=== PATIENT | male | born 1960 | race Caucasian/White ===

== ENCOUNTER 2024-01-27 09:18 | Inpatient (IN) ==
--- NOTE | 2024-01-27 10:31 | Emergency Department Note ---
ED Provider Note History of Present Illness Chief Complaint: Flu Like Symptoms Stated Complaint: HEADACHES/DIZZY/UPPER L TOOTH PAIN Time Seen by Provider: 01/27/24 10:06 This is a 63-year-old male accompanied by his who presents to the emergency department with a frontal headache, fevers of 101, dizziness, lightheadedness, body aches, and generally not feeling well. He states that he initially started with symptoms about a month ago, had a bit of a cough and was seen in this emergency department 2 weeks ago. He was diagnosed with a viral upper respiratory infection and given an albuterol inhaler. He states that he feels worse now, not better, however he states that his cough has improved. He also stopped smoking 1 week ago and thinks this may be helping with his cough. He has been taking Tylenol for his fever but then the temperature returns. Has had worsening body aches and joint pains with the symptoms. Is trying to drink fluids but does not want to eat very much. Has not had any vomiting aside from 3 weeks ago. States that his vision feels slightly blurry and he feels dizzy and lightheaded, like the room is spinning but also like he might pass out. He felt his chest pounding earlier today but otherwise does not have any chest pain and does not have any shortness of breath. No abdominal pain or urinary symptoms. Patient also states that he feels like his left upper tooth is infected. Home Medications Medication Instructions Recorded Confirmed Type Doxycycline Hyclate 100 mg PO BID 7 days #14 caps 07/05/16 Rx Ergocalciferol (Vitamin D) 50,000 interunit PO We@1030 90 07/05/16 Rx days #12 caps Fluconazole 100 mg PO QAM 7 days #7 tabs 07/05/16 Rx Folic Acid 1 mg PO QAM 30 days #30 tabs 07/05/16 Rx Ibuprofen Tab (MOTRIN) 1 tab PO TID PRN Headache or Pain 07/05/16 Rx 10 days #30 tabs NICOTINE POLACRILEX (NICOTINE 4 mg PO Q2H PRN cravings 30 days 07/05/16 Rx POLACRILEX START) #1 box albuterol sulfate 90 mcg/actuation 2 puffs inhalation QID PRN 01/14/24 Rx aerosol inhaler (Ventolin HFA) shortness of breath or wheezing #8.5 grams Allergies Allergy/AdvReac Type Severity Reaction Status Date / Time No Known Allergies Allergy NONE Verified 06/21/16 14:50 Past Med/Surg History Problem List (Updated 01/14/24 @ 11:31 by Chon Solo) Viral upper respiratory tract infection with cough (Acute) Medical History Tobacco abuse Diabetes mellitus, type II Surgical History H/O vasectomy H/O brain surgery Social History (Updated 01/14/24 @ 10:10 by Chon Solo) Smoking Status: Former smoker Tobacco Type: Cigarettes Preferred Language: Serbian marital status: Feels Safe at Home: Yes Physical Exam Vital Signs Vital Signs - 24 hr 01/27/24 09:23 Temperature 98.4 F Temperature Source Oral Pulse Rate 98 H Respiratory Rate 19 Respiratory Effort / Characteristics Non-Labored Spontaneous Respiratory Depth Normal Blood Pressure 115/71 Blood Pressure Mean 85 Blood Pressure Position Sitting Pulse Oximetry 95 Oxygen Delivery Method Room Air Sepsis Recent Fever Within 48 Hours No Sepsis New/Unexplained Change in Mental Status No Sepsis Action Taken by Nursing No Action Required Discharge Plan Visit Data Chief Complaint: Flu Like Symptoms Stated Complaint: HEADACHES/DIZZY/UPPER L TOOTH PAIN ED Provider: Justine Heller ED Midlevel Provider: Rah Orozco Forms Stand Alone Forms: [facility] Prescriptions Prescriptions: No Action Doxycycline Hyclate 100 MG capsule 100 mg PO BID 7 Days Qty: 14 0RF Ergocalciferol (Vitamin D) 50,000 INTERUNIT capsule 50,000 interunit PO We@1030 90 Days Qty: 12 0RF Fluconazole 100 MG tablet 100 mg PO QAM 7 Days Qty: 7 0RF Folic Acid 1 MG tablet 1 mg PO QAM 30 Days Qty: 30 0RF Ibuprofen Tab (MOTRIN) 800 MG tablet 1 tab PO TID PRN (Reason: Headache or Pain) 10 Days Qty: 30 0RF NICOTINE POLACRILEX (NICOTINE POLACRILEX START) 4 MG gum 4 mg PO Q2H PRN (Reason: cravings) 30 Days Qty: 1 0RF albuterol sulfate [Ventolin HFA] 90 mcg/actuation HFA aerosol inhaler 2 puffs INH QID PRN (Reason: shortness of breath or wheezing) Qty: 8.5 0RF Referrals Referrals: PCP,NO [Primary Care Provider] -
--- NOTE | 2024-01-27 10:38 | ED Triage Note ---
Date of Service January 27, 2024 Provider in Triage Author: Rah Orozco. History of Present Illness This patient was briefly evaluated while in triage. An abbreviated physical exam was performed. This patient is a 63-year-old Male who presents to the ED for evaluation of worsening dizziness, fatigue, joint pains, fever 101 for 2 weeks. Was seen in this ER 2 weeks ago, cough better but everything else worse. Physical Exam CONSTITUTIONAL: in no acute pain or distress, uncomfortable/ill appearing SKIN: pale, dry CARDIAC: regular rate and rhythm RESPIRATORY: in no respiratory distress, lungs clear to auscultation Initial orders for labs and / or imaging were placed and patient was placed into a room by myself. Initial orders placed. Please see further documentation for the full ED course.
--- NOTE | 2024-01-27 10:56 | Emergency Department Note ---
Impression & Plan Anemia ADMIT ED Provider Note HPI: History obtained from patient and at the bedside. The patient is a 63-year-old gentleman with history of brain aneurysm status post coiling, presents the emergency department today with multiple issues. Patient states over about the past month he has had increasing weakness and fatigue, he states he has had headaches during this time as well. Patient denies any abdominal pain, denies any nausea or vomiting, denies any chest pain or shortness of breath. Patient denies any dysuria, denies any cough. Patient states in general he is just has not felt well. On arrival here to the ED the patient is hemodynamically stable, he does not have a fever, he otherwise appears to be in no acute distress but he is somewhat listless appearing. Patient's also notes that he has had a jaundice coloration that has just become noticeable over the past several days. ROS: - Per HPI Differential Diagnosis: Intracranial hemorrhage to include subarachnoid hemorrhage, viral upper respiratory infection, symptomatic anemia, cancer, pneumonia, sepsis, urinary tract infection, amongst other potential pathologies. *Outpatient medications and allergy history reviewed. 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 Lab work shows no leukocytosis, hemoglobin returned critically low at 6.1, platelet count is normal. CMP does not show any critical findings, lactic acid is slightly elevated at 2.4, bilirubin is elevated at 2.3 but there is no transaminitis, troponin is negative x 1. Procalcitonin is low at 0.31. Urinalysis does not show any evidence of blood or infection. Viral panel testing is negative. CT imaging of the head was obtained that does not show any evidence of any acute intracranial process. On my reassessment the patient is hemodynamically stable, I explained the above findings to the patient and his and recommended admission for packed red blood cell transfusion and further workup for the source of the patient's anemia. He is in agreement. Patient did sign consent for packed red blood cell transfusion at the bedside. I discussed the patient's presentation with the on- call admitting midlevel provider for [facility], Sarah Moon PA-C, and the patient was placed for admission in stable condition. Consultants/Discussions held with other healthcare providers: -Hospitalist, Dr. Garzon Disposition discussion held by myself with: -Patient and at bedside Diagnosis: 1. Symptomatic anemia, acute, nonspecific 2. Elevated bilirubin, acute, mild 3. Headache, acute, nonspecific Disposition: Admission Dominik Soria DO Emergency Medicine Past Med/Surg History Problem List (Updated 01/27/24 @ 14:50 by Dominik Soria DO) Anemia (Acute) Anemia Night sweats Fatigue Unintentional weight loss Sepsis Medical History (Updated 01/27/24 @ 14:50 by Dominik Soria DO) Tobacco use disorder 30 pack years, quit last week Pneumothorax Brain aneurysm Diabetes mellitus, type II diet controlled Surgical History (Updated 01/27/24 @ 14:36 by Sarah Moon PA-C) H/O vasectomy H/O brain surgery h/o clipping of 2 aneurysms in 2004 at OSH in [place] Social History (Updated 01/14/24 @ 10:10 by Chon Solo) Smoking Status: Former smoker Tobacco Type: Cigarettes Preferred Language: Nigerian marital status: Feels Safe at Home: Yes Allergies Allergies Allergy/AdvReac Type Severity Reaction Status Date / Time No Known Allergies Allergy NONE Verified 06/21/16 14:50 Home Meds Home Medications Medication Instructions Recorded Confirmed Advil 1 tab PO UD PRN Pain 01/27/24 01/27/24 Tylenol 1 tab PO UD PRN Pain 01/27/24 01/27/24 Previous Rx's Medication Instructions Recorded albuterol sulfate 90 mcg/actuation 2 puffs inhalation QID PRN 01/14/24 aerosol inhaler (Ventolin HFA) shortness of breath or wheezing #8.5 grams Results & Data (ED) Vital Signs Vital Signs - 24 hr 01/27/24 09:23 01/27/24 11:31 01/27/24 12:00 Temperature 36.9 C Temperature Source Oral Pulse Rate 98 H 82 91 H Respiratory Rate 19 19 Respiratory Effort / Characteristics Non-Labored Spontaneous Respiratory Depth Normal Blood Pressure 115/71 134/70 Blood Pressure Mean 85 91 Blood Pressure Position Sitting Pulse Oximetry 95 92 Oxygen Delivery Method Room Air Sepsis Recent Fever Within 48 Hours No Sepsis New/Unexplained Change in Mental Status No Sepsis Action Taken by Nursing No Action Required 01/27/24 13:59 01/27/24 14:13 01/27/24 14:14 Temperature 38.1 C H 38.6 C H 38.6 C H Temperature Source Oral Oral Oral Pulse Rate 109 H 103 H 101 H Respiratory Rate 14 17 17 Respiratory Effort / Characteristics Respiratory Depth Blood Pressure 134/70 147/75 H 147/75 H Blood Pressure Mean 91 99 99 Blood Pressure Position Pulse Oximetry 94 92 92 Oxygen Delivery Method Sepsis Recent Fever Within 48 Hours Sepsis New/Unexplained Change in Mental Status Sepsis Action Taken by Nursing 01/27/24 14:29 Temperature 38.2 C H Temperature Source Oral Pulse Rate 107 H Respiratory Rate 20 Respiratory Effort / Characteristics Respiratory Depth Blood Pressure 148/72 H Blood Pressure Mean 97 Blood Pressure Position Pulse Oximetry 95 Oxygen Delivery Method Sepsis Recent Fever Within 48 Hours Sepsis New/Unexplained Change in Mental Status Sepsis Action Taken by Nursing Laboratory Data 01/27/24 11:20 01/27/24 11:20 Lab Results 01/27/24 01/27/24 01/27/24 Range/Units 11:20 12:03 12:09 WBC 6.64 (4.8-10.8) K/ul RBC 1.86 L (4.70-6.10) M/uL Hgb 6.1 L* (14.0-18.0) g/dl Hct 18.8 L* (42.0-52.0) % MCV 101.1 H (80.0-100.0) fL MCH 32.8 (25.0-34.0) pg MCHC 32.4 (32.0-36.0) g/dL RDW Std Deviation 58.4 H (36.4-46.3) fL RDW Coeff of Juan 16.5 H (11.5-14.5) % Plt Count 169 (130-400) K/uL MPV 12.0 (9.4-12.4) fL Immature Gran % (Auto) 1.1 % Neut % (Auto) 57.7 % Lymph % (Auto) 23.5 % Sabine % (Auto) 16.7 % Eos % (Auto) 0.8 % Baso % (Auto) 0.2 % Reticulocyte % (Auto) 8.76 H (0.50-2.00) % Neut # (Auto) 3.84 (1.40-6.50) K/uL Lymph # (Auto) 1.56 (1.20-3.40) K/uL Sab[place] # (Auto) 1.11 H (0.11-0.59) K/uL Eos # (Auto) 0.05 (0.00-0.50) K/uL Baso # (Auto) 0.01 (0.00-0.20) K/uL Reticulocyte # 0.160 H (0.020-0.100) 10^6/uL Immature Gran # (Auto) 0.07 (0.01-0.20) K/uL Polychromasia 1+ ESR 34 H (0-20) mm/hr Sodium 137 (136-145) mmol/L Potassium 4.5 (3.5-5.1) mmol/L Chloride 107 (98-107) mmol/L Carbon Dioxide 25 (21-32) mmol/L Anion Gap 5 (3-11) BUN 19 (6-23) mg/dl Creatinine 0.85 (0.6-1.4) mg/dl Est Cr Clr Drug Dosing 84.9 ml/min Est GFR ( Amer) 106.7 ml/min Est GFR (Non-Af Amer) 92.1 ml/min BUN/Creatinine Ratio 22.4 H (10-20) Glucose 122 H (70-99(Fasting)) mg/dl Lactate 2.4 H* (0.4-2.0) mmol/L Calcium 8.3 L (8.6-10.3) mg/dl Magnesium 2.1 (1.7-2.4) mg/dl Total Bilirubin 2.3 H (0.2-1.0) mg/dl AST 33 (13-39) U/L ALT 37 (7-52) U/L Alkaline Phosphatase 71 (34-104) U/L Lactate Dehydrogenase 795 H (86-244) U/L Troponin I High Sens 3.6 (0-20) pg/ml Total Protein 6.5 (6.0-8.3) gm/dl Albumin 3.3 L (3.4-5.0) gm/dl Globulin 3.2 (2.5-4.0) gm/dl Albumin/Globulin Ratio 1.0 (0.9-2) Vitamin B12 596 (180-914) pg/ml Folate 10.01 (>5.38) ng/ml Procalcitonin 0.31 (0-0.5) ng/ml TSH 1.962 (0.300-4.500) uIu/ml Urine Color Urine Appearance (Clear) Urine pH (4.5-7.5) Ur Specific [place] (1.000-1.030) Urine Protein (Negative) Urine Glucose (UA) (Negative) Urine Ketones (Negative) Urine Blood (Negative) Urine Nitrite (Negative) Urine Bilirubin (Negative) Urine Urobilinogen (Negative) Ur Leukocyte Esterase (Negative) Adenovirus (PCR) Not Detected (NotDetected) Anaplasma Smear See Comment Babesia Smear See Comment B. pertussis DNA (PCR) Not Detected (NotDetected) B.parapertussis DNA PCR Not Detected (NotDetected) Lyme Disease Screen Negative (Negative) C. pneumoniae DNA (PCR) Not Detected (NotDetected) Coronavirus OC43 (PCR) Not Detected (NotDetected) Coronavirus HKU1 (PCR) Not Detected (NotDetected) Coronavirus 229E (PCR) Not Detected (NotDetected) SARS-CoV-2 (PCR) Not Detected (NotDetected) Coronavirus NL63 (PCR) Not Detected (NotDetected) Human Metapneumovir PCR Not Detected (NotDetected) Influenza Type A (PCR) Not Detected (NotDetected) Influenza Type B (PCR) Not Detected (NotDetected) M. pneumoniae (PCR) Not Detected (NotDetected) Parainfluenza 1 (PCR) Not Detected (NotDetected) Parainfluenza 2 (PCR) Not Detected (NotDetected) Parainfluenza 3 (PCR) Not Detected (NotDetected) Parainfluenza 4 (PCR) Not Detected (NotDetected) RSV (PCR) Not Detected (NotDetected) Entero/Rhino (PCR) Not Detected (NotDetected) Blood Type O Positive Blood Type Recheck Antibody Screen NEGATIVE Crossmatch See Detail 01/27/24 01/27/24 01/27/24 Range/Units 12:43 14:08 14:32 WBC (4.8-10.8) K/ul RBC (4.70-6.10) M/uL Hgb (14.0-18.0) g/dl Hct (42.0-52.0) % MCV (80.0-100.0) fL MCH (25.0-34.0) pg MCHC (32.0-36.0) g/dL RDW Std Deviation (36.4-46.3) fL RDW Coeff of Juan (11.5-14.5) % Plt Count (130-400) K/uL MPV (9.4-12.4) fL Immature Gran % (Auto) % Neut % (Auto) % Lymph % (Auto) % Sabine % (Auto) % Eos % (Auto) % Baso % (Auto) % Reticulocyte % (Auto) (0.50-2.00) % Neut # (Auto) (1.40-6.50) K/uL Lymph # (Auto) (1.20-3.40) K/uL Sab[place] # (Auto) (0.11-0.59) K/uL Eos # (Auto) (0.00-0.50) K/uL Baso # (Auto) (0.00-0.20) K/uL Reticulocyte # (0.020-0.100) 10^6/uL Immature Gran # (Auto) (0.01-0.20) K/uL Polychromasia ESR (0-20) mm/hr Sodium (136-145) mmol/L Potassium (3.5-5.1) mmol/L Chloride (98-107) mmol/L Carbon Dioxide (21-32) mmol/L Anion Gap (3-11) BUN (6-23) mg/dl Creatinine (0.6-1.4) mg/dl Est Cr Clr Drug Dosing ml/min Est GFR ( Amer) ml/min Est GFR (Non-Af Amer) ml/min BUN/Creatinine Ratio (10-20) Glucose (70-99(Fasting)) mg/dl Lactate 1.0 (0.4-2.0) mmol/L Calcium (8.6-10.3) mg/dl Magnesium (1.7-2.4) mg/dl Total Bilirubin (0.2-1.0) mg/dl AST (13-39) U/L ALT (7-52) U/L Alkaline Phosphatase (34-104) U/L Lactate Dehydrogenase (86-244) U/L Troponin I High Sens (0-20) pg/ml Total Protein (6.0-8.3) gm/dl Albumin (3.4-5.0) gm/dl Globulin (2.5-4.0) gm/dl Albumin/Globulin Ratio (0.9-2) Vitamin B12 (180-914) pg/ml Folate (>5.38) ng/ml Procalcitonin (0-0.5) ng/ml TSH (0.300-4.500) uIu/ml Urine Color Dark Yellow Urine Appearance Clear (Clear) Urine pH 6.0 (4.5-7.5) Ur Specific [place] 1.018 (1.000-1.030) Urine Protein Negative (Negative) Urine Glucose (UA) Negative (Negative) Urine Ketones Negative (Negative) Urine Blood Negative (Negative) Urine Nitrite Negative (Negative) Urine Bilirubin Negative (Negative) Urine Urobilinogen Negative (Negative) Ur Leukocyte Esterase Negative (Negative) Adenovirus (PCR) (NotDetected) Anaplasma Smear Babesia Smear B. pertussis DNA (PCR) (NotDetected) B.parapertussis DNA PCR (NotDetected) Lyme Disease Screen (Negative) C. pneumoniae DNA (PCR) (NotDetected) Coronavirus OC43 (PCR) (NotDetected) Coronavirus HKU1 (PCR) (NotDetected) Coronavirus 229E (PCR) (NotDetected) SARS-CoV-2 (PCR) (NotDetected) Coronavirus NL63 (PCR) (NotDetected) Human Metapneumovir PCR (NotDetected) Influenza Type A (PCR) (NotDetected) Influenza Type B (PCR) (NotDetected) M. pneumoniae (PCR) (NotDetected) Parainfluenza 1 (PCR) (NotDetected) Parainfluenza 2 (PCR) (NotDetected) Parainfluenza 3 (PCR) (NotDetected) Parainfluenza 4 (PCR) (NotDetected) RSV (PCR) (NotDetected) Entero/Rhino (PCR) (NotDetected) Blood Type Blood Type Recheck O Positive Antibody Screen Crossmatch Administered Medications Discontinued Medications Acetaminophen (Acetaminophen 500 Mg Tab) 1,000 mg PO NOW STA Stop: 01/27/24 14:14 Last Admin: 01/27/24 14:19 Dose: 1,000 mg Documented By: CIELO Sodium Chloride (Nss) 1,000 mls @ 999 mls/hr IV .Q1H1M ONE Stop: 01/27/24 11:33 Last Infusion: 01/27/24 13:36 Dose: Infused Documented By: Admin: 01/27/24 11:37 Dose: 999 mls/hr Documented By: CIELO Imaging Data Radiologist's Impression: Chest X-Ray 01/27/24 10:33 XR chest 1V portable HISTORY: weakness COMPARISON: Chest 01/14/2024. FINDINGS: The lungs are clear. Cardiac silhouette is normal in size. No pleural effusions. No pneumothorax. IMPRESSION: No acute process. ACT 112: Negative or not required by law. Electronically signed by: Jose He M.D. 01/27/2024 11:[address] 01/27/24 10:[address] DOSE: 547.75 mGy.cm HISTORY: Headache. Weakness. TECHNIQUE: Multiaxial CT images of the head were performed without the use of intravenous contrast. Automated exposure control was utilized for this study. A dose lowering technique was utilized adhering to the principles of ALARA. Comparison: Head CTA 06/28/2016. Findings: The paranasal sinuses and mastoid air cells are clear. The calvarium and skull base are intact. The ventricles and sulci are within normal limits. There is no mass, hematoma, midline shift, or acute infarct. Prior aneurysm embolizations for coiling again noted at the skull base. Impression: No significant change compared to the prior study. No acute intracranial abnormality. ACT 112: Negative or not required by law. Electronically signed by: Jose He M.D. 01/27/2024 12:14 PM Discharge Plan Visit Data Chief Complaint: Flu Like Symptoms Stated Complaint: HEADACHES/DIZZY/UPPER L TOOTH PAIN ED Provider: Dominik Soria Discharge Problem: Anemia Forms Stand Alone Forms: [facility] Prescriptions Prescriptions: No Action albuterol sulfate [Ventolin HFA] 90 mcg/actuation HFA aerosol inhaler 2 puffs INH QID PRN (Reason: shortness of breath or wheezing) Qty: 8.5 0RF Advil 1 tab PO UD PRN (Reason: Pain) Rx Instructions: otc, as directed. unknown dose Tylenol 1 tab PO UD PRN (Reason: Pain) Rx Instructions: otc, as directed. unknown dose Referrals Referrals: PCP,NO [Primary Care Provider] - Discharge Problem: Anemia Qualifiers: Anemia type: unspecified type Qualified Code(s): D64.9 - Anemia, unspecified
--- NOTE | 2024-01-27 11:08 | XRay Report ---
XR chest 1V portable HISTORY: weakness COMPARISON: Chest 01/14/2024. FINDINGS: The lungs are clear. Cardiac silhouette is normal in size. No pleural effusions. No pneumot horax. IMPRESSION: No acute process. ACT 112: Negative or not required by law. Electronically signed by: Jose He M.D. 01/27/2024 11:07 AM
[2024-01-27] MEDS: SODIUM CHLORIDE 0.9% 1,000 ML IV ONE (11:37)
[2024-01-27 12:05] LABS: Hematocrit (blood only) 18.8 % (42.0-52.0); Hemoglobin 6.1 g/dl (14.0-18.0); Mean Corpuscular Hemoglobin 32.8 pg (25.0-34.0); Mean Corpuscular Hgb Conc 32.4 g/dL (32.0-36.0); Mean Corpuscular Volume 101.1 fL (80.0-100.0); Platelet Count 169 K/uL (130-400); RDW Coefficient of Variation 16.5 % (11.5-14.5); RDW Standard Deviation 58.4 fL (36.4-46.3); Red Blood Count 1.86 M/uL (4.70-6.10); White Blood Count 6.64 K/ul (4.8-10.8)
[2024-01-27] MEDS ORDERED: SODIUM CHLORIDE 0.9% 250 ML IV PRN ×2 (12:06→21:49)
[2024-01-27 12:08] LABS: Albumin Level 3.3 gm/dl (3.4-5.0); Bilirubin,Total 2.3 mg/dl (0.2-1.0); Calcium 8.3 mg/dl (8.6-10.3); Magnesium 2.1 mg/dl (1.7-2.4); Potassium 4.5 mmol/L (3.5-5.1)
[2024-01-27 12:14] LABS: BUN Creatinine Ratio 22.4 (10-20); Creatinine Clr Calc Pharmacy 84.9 ml/min; Est GFR (African American) 106.7 ml/min; Est GFR (Non-African American) 92.1 ml/min; Globulin 3.2 gm/dl (2.5-4.0); Total Protein 6.5 gm/dl (6.0-8.3)
--- NOTE | 2024-01-27 12:16 | CT Scan Report ---
HEAD CT NONCONTRAST CT DOSE: 547.75 mGy.cm HISTORY: Headache. Weakness. TECHNIQUE: Multiaxial CT images of the head were performed without the use of intravenous contrast. A utomated exposure control was utilized for this study. A dose lowering technique was utilized adheri ng to the principles of ALARA. Comparison: Head CTA 06/28/2016. Findings: The paranasal sinuses and mastoid air cells are clear. The calvarium and skull base are int act. The ventricles and sulci are within normal limits. There is no mass, hematoma, midline shift, or acute infarct. Prior aneurysm embolizations for coiling again noted at the skull base. Impression: No significant change compared to the prior study. No acute intracranial abnormality. ACT 112: Negative or not required by law. Electronically signed by: Jose He M.D. 01/27/2024 12:14 PM
[2024-01-27 12:20] LABS: Troponin I High Sensitivity 3.6 pg/ml (0-20)
[2024-01-27 12:21] LABS: Basophils # (auto) 0.01 K/uL (0.00-0.20); Basophils % (auto) 0.2 %; Eosinophils # (auto) 0.05 K/uL (0.00-0.50); Eosinophils % (auto) 0.8 %; Immature Granulocytes # (auto) 0.07 K/uL (0.01-0.20); Immature Granulocytes % (auto) 1.1 %; Lymphocytes # (auto) 1.56 K/uL (1.20-3.40); Lymphocytes % (auto) 23.5 %; Monocytes # (auto) 1.11 K/uL (0.11-0.59); Monocytes % (auto) 16.7 %; Neutrophils # (auto) 3.84 K/uL (1.40-6.50); Neutrophils % (auto) 57.7 %; Polychromasia 1+
[2024-01-27 13:09] LABS: Procalcitonin 0.31 ng/ml (0-0.5)
[2024-01-27 13:28] LABS: Adenovirus PCR Not Detected (NotDetected); Bordetella parapertussis PCR Not Detected (NotDetected); Bordetella pertussis PCR Not Detected (NotDetected); Chlamydia pneumoniae PCR Not Detected (NotDetected); Coronavirus 229E PCR Not Detected (NotDetected); Coronavirus CoV-2 (COVID19)PCR Not Detected (NotDetected); Coronavirus HKU1 PCR Not Detected (NotDetected); Coronavirus NL63 PCR Not Detected (NotDetected); Coronavirus OC43PCR Not Detected (NotDetected); Human Metapneumovirus PCR Not Detected (NotDetected); Influenza A PCR Not Detected (NotDetected); Influenza B PCR Not Detected (NotDetected); Mycoplasma pneumoniae PCR Not Detected (NotDetected); Parainfluenza Virus 1 PCR Not Detected (NotDetected); Parainfluenza Virus 2 PCR Not Detected (NotDetected); Parainfluenza Virus 3 PCR Not Detected (NotDetected); Parainfluenza Virus 4 PCR Not Detected (NotDetected); Respiratory Syncytial VirusPCR Not Detected (NotDetected); Rhinovirus/Enterovirus PCR Not Detected (NotDetected)
[2024-01-27 13:35] LABS: Lyme Screen Rflx Confirmation Negative (Negative)
[2024-01-27 13:37] LABS: Thyroid Stimulating Hormone 1.962 uIu/ml (0.300-4.500)
[2024-01-27 14:00] LABS: Reticulocyte % 8.76 % (0.50-2.00)
[2024-01-27] MEDS ORDERED: VANCOMYCIN CONSULT ACTIVE PRN (14:11)
--- NOTE | 2024-01-27 14:13 | History & Physical Report ---
Date of Service January 27, 2024 Assessment & Plan (1) Anemia: (2) Sepsis: (3) Fatigue: (4) Unintentional weight loss: (5) Night sweats: (6) Tobacco use disorder: Plan This is a 63-year-old male with history of tobacco use, diet-controlled type 2 diabetes history of brain aneurysm s/p clipping in 2004 and other medical problems listed below who presents with night sweats and progressive fatigue over the past 3 weeks and was found to have anemia requiring transfusion. Macrocytic anemia Hgb 6.1, hct 18.8, MCV 101.1, Tbili 2.3 Added folate, B12, TSH, retic count, LDH, haptoglobin, peripheral smear to work up Consented, type and crossed with 2 units prbcs ordered Recheck H&H after transfusion Night sweats Unintentional weight loss Presenting with night sweats over past 3 weeks, 30 # weight loss over last 4 months, 30 pack year smoking hx CXR without acute process Obtaining CT chest and CT abd/pelvis with con for better evaluation, need to r/o malignancy given presentation Continue anemia work up, periph smear as above Sepsis Initially afebrile in ED but repeat vitals showing T 38 C, HR 103, lactate 2.5 meeting sepsis criteria No leukocytosis, procal WNL CT head and CXR without acute process Added blood culture, MRSA swab Started empiric vanc, zosyn with add'l imaging of chest and abdomen, UA pending Received 1L NSS in ED, lactate normalized. Now receiving blood transfusion History of tobacco use 30 pack years, quit 1 week ago. Declines nicotine patch DVT Ppx: SCDs only for now given anemia of unknown source Code status: FULL PCP: No PCP - lives in [place], [place] Dispo: admitted to PCU Patient seen in collaboration with Dr. Garzon. Please see addendum. I spent a total of 75 minutes coordinating, documenting, and providing care for this patient excluding time spent in the performance of separately billed services. History of Present Illness Chief Complaint: Fatigue, unintentional weight loss Primary Care Provider: NO PCP This is a 63-year-old male with history of tobacco use, diet-controlled type 2 diabetes history of brain aneurysm s/p clipping in 2004 and other medical problems listed below who presents with night sweats and progressive fatigue over the past 3 weeks. Patient does not have a PCP or receive routine medical care. Was seen in the ED 2 weeks ago for cough, fever and body aches and was felt to have viral bronchitis. Discharged home with inhaler. Patient admits that over the past 6 months, he has felt progressively weaker, more fatigued and now with body aches as well as an approximate unintentional 30 pound weight loss. Endorses 30 pack years of smoking history but quit 1 week ago. Also endorses night sweats 1-2 times a week for the past 3 weeks. Decreased appetite. Denies fever since seen in the ED at the end of December. Cough has also improved. Still with intermittent chills, body aches. Only medications he is taking at home are Tylenol and Advil, which he has been taking for general body aches as well as frontal headache. Endorsing aching in knees but no swelling or redness to any joint. Denies any alcohol use. Denies any history of known anemia requiring blood transfusion. No personal history of cancer. No lightheadedness, CP, SOB, N/V, abdominal pain, dysuria, diarrhea, constipation, melena or hematochezia. Allergies Allergy/AdvReac Type Severity Reaction Status Date / Time No Known Allergies Allergy NONE Verified 06/21/16 14:50 Home Medications Medication Instructions Recorded Confirmed Type albuterol sulfate 90 mcg/actuation 2 puffs inhalation QID PRN 01/14/24 01/27/24 Rx aerosol inhaler (Ventolin HFA) shortness of breath or wheezing #8.5 grams Advil 1 tab PO UD PRN Pain 01/27/24 01/27/24 History Tylenol 1 tab PO UD PRN Pain 01/27/24 01/27/24 History Past Med/Surg History Problem List (Updated 01/27/24 @ 14:50 by Dominik Soria DO) Anemia (Acute) Anemia Night sweats Fatigue Unintentional weight loss Sepsis Medical History (Updated 01/27/24 @ 14:50 by Dominik Soria DO) Tobacco use disorder 30 pack years, quit last week Pneumothorax Brain aneurysm Diabetes mellitus, type II diet controlled Surgical History (Updated 01/27/24 @ 14:36 by Sarah Moon PA-C) H/O vasectomy H/O brain surgery h/o clipping of 2 aneurysms in 2004 at O[facility] in [place] Social History (Updated 01/14/24 @ 10:10 by Chon Solo) Smoking Status: Former smoker Tobacco Type: Cigarettes Preferred Language: Sami marital status: Feels Safe at Home: Yes Review of Systems Review of Systems: At least ten systems reviewed and negative except as noted in the HPI. Physical Exam Physical Exam: General Appearance: WD/WN, vitals as above, NAD, thin, ill appearing, conversing easily Head: normocephalic, atraumatic Eyes: normal inspection, PERRL, conjunctivae normal, anicteric sclerae ENT: external ear and nose normal, oropharynx normal Neck: normal visual inspection, trachea midline, no thyromegaly Respiratory: normal respiratory effort, diminished lung sounds to auscultation, no wheeze, rales or rhonchi. No accessory muscle use Cardiovascular: tachycardic rate, regular rhythm, normal peripheral pulses, no BLE edema. Vessels: no JVD Chest: normal inspection of chest Abdomen/GI: normal bowel sounds, soft, nontender, no hepatosplenomegaly Extremities/Musculoskeletal: no cyanosis or clubbing, extremities motor strength 5/5 Neurologic: PERRL, EOMI, accommodation nl, no face palsy, no dysarthria, CN's II-XI intact bilaterally and moves all extremities Psychiatric: A+Ox3, euthymic affect Skin: no rashes, normal color, warm/dry Results & Data Results & Data Vital Signs (Past 12 Hours) Vital Signs Temp Pulse Resp BP Pulse Ox O2 Del Method 01/27/24 13:59 38.1 C H 109 H 14 134/70 94 01/27/24 12:00 91 H 19 134/70 92 01/27/24 11:31 82 01/27/24 09:23 36.9 C 98 H 19 115/71 95 Room Air Laboratory Results Short CBC 01/27/24 Range/Units 11:20 WBC 6.64 (4.8-10.8) K/ul Hgb 6.1 L* (14.0-18.0) g/dl Hct 18.8 L* (42.0-52.0) % Plt Count 169 (130-400) K/uL BMP 01/27/24 11:20 Sodium 137 Potassium 4.5 Chloride 107 Carbon Dioxide 25 BUN 19 Creatinine 0.85 Glucose 122 H Calcium 8.3 L Liver Function 01/27/24 Range/Units 11:20 Total Bilirubin 2.3 H (0.2-1.0) mg/dl AST 33 (13-39) U/L ALT 37 (7-52) U/L Alkaline Phosphatase 71 (34-104) U/L Albumin 3.3 L (3.4-5.0) gm/dl Diagnostic Findings Chest X-Ray 01/27/24 10:33 XR chest 1V portable HISTORY: weakness COMPARISON: Chest 01/14/2024. FINDINGS: The lungs are clear. Cardiac silhouette is normal in size. No pleural effusions. No pneumothorax. IMPRESSION: No acute process. ACT 112: Negative or not required by law. Electronically signed by: Jose He M.D. 01/27/2024 11:[address] 01/27/24 10:[address] CT DOSE: 547.75 mGy.cm HISTORY: Headache. Weakness. TECHNIQUE: Multiaxial CT images of the head were performed without the use of intravenous contrast. Automated exposure control was utilized for this study. A dose lowering technique was utilized adhering to the principles of ALARA. Comparison: Head CTA 06/28/2016. Findings: The paranasal sinuses and mastoid air cells are clear. The calvarium and skull base are intact. The ventricles and sulci are within normal limits. There is no mass, hematoma, midline shift, or acute infarct. Prior aneurysm embolizations for coiling again noted at the skull base. Impression: No significant change compared to the prior study. No acute intracranial abnormality. ACT 112: Negative or not required by law. Electronically signed by: Jose He M.D. 01/27/2024 12:14 PM Code Status & VTE Plan VTE Prophylaxis Plan VTE Prophylaxis will be ordered: Yes Supervising Physician Co-Signing Physician Notes Attending addendum; The patient was seen and examined in telemetry unit in presence of the family members He has been complaining of progressive weakness and weight loss for the last 3 to 4 weeks Also complains to have occasional fever and night sweats for almost the same. He was in the ER with URI symptoms and was sent home on oral inhalers-no blood test were done during that examination except BioFire which was negative Denies any chest pain, palpitation, any nausea no vomiting, any problem with urine or bowel habit and no history of hematemesis and/or melena. He has not been to doctors for years On examination He looks pale without any apparent distress lying down Noted to have a temperature of 38 degrees with a pulse of 91 and normal saturation and blood pressure Chest-clear to auscultate bilaterally Heart-S1-S2, regular Abdomen-benign Extremities-negative for any edema [employer]-alert, awake and oriented x 3. No focal sensory or motor deficit appreciated His admission labs, EKG and imaging studies reviewed Notable findings of low hemoglobin of 6.1 with mildly increased MCV and increased reticulocyte count of 8.76 and his LDH was high at 795. Peripheral blood smear and Elis test have been pending. ESR was unremarkable at 30 His initial lactate was 2.4 and that came down with intravenous fluid He was started with blood transfusion but due to high temperature of 39 that was on hold right now The case was discussed with Dr. Leahy and very still waiting for Elis test and haptoglobin CT scan of the chest and CT scan of the abdomen pelvis with contrast did not show any significant abnormality except mildly enlarged spleen He was started with intravenous Zosyn and vancomycin empirically after taking blood cultures His stool is negative for any blood He will have repeat CBC in the evening and will restart blood transfusion when the temperature is down He will have TTE initially until we get the blood culture. The case was discussed with the and the daughter Agree with and take the full responsibility of the assessment plan as outlined above by MAVERICK Noonan Dr
[2024-01-27] MEDS ORDERED: ALBUTEROL HFA 8 GM INHALER INH PRN (14:18)
[2024-01-27] MEDS: ACETAMINOPHEN 500 MG TAB PO STA (14:19)
[2024-01-27 14:21] LABS: Folate (Folic Acid),Ser orPlas 10.01 ng/ml (>5.38)
[2024-01-27 14:43] LABS: Appearance Urine Clear (Clear); Bilirubin Urine Negative (Negative); Blood Urine Negative (Negative); Color Urine Dark Yellow; Glucose Urine UA Negative (Negative); Ketones Urine Negative (Negative); Leukocyte Esterase Urine Negative (Negative); Nitrite Urine Negative (Negative); Protein Urine Negative (Negative); Specific Gravity Urine 1.018 (1.000-1.030); Urobilinogen Urine Negative (Negative)
[2024-01-27] MEDS: PIPERACILLIN/TAZOBACTAM 4.5 GM/100 ML BAG IV ONE (15:02)
[2024-01-27] MEDS: IBUPROFEN 200 MG TAB PO ONE (15:30)
[2024-01-27] MEDS: OPTIRAY 320 100ml IV ONE (15:42)
[2024-01-27] MEDS: IBUPROFEN 200 MG TAB PO STA (16:08)
--- NOTE | 2024-01-27 16:10 | Electrocardiogram Report ---
Test Reason : Blood Pressure : / mmHG Vent. Rate : 055 BPM Atrial Rate : 055 BPM P-R Int : 154 ms QRS Dur : 082 ms QT Int : 396 ms P-R-T Axes : 069 067 076 degrees QTc Int : 378 ms Sinus bradycardia When compared with ECG of 28-JUN-2016 13:30, Vent. rate has decreased BY 39 BPM Nonspecific T wave abnormality no longer evident in Inferior leads T wave inversion less evident in Anterolateral leads Confirmed by Branden Vu ([id number]) on 01/27/2024 4:09:59 PM Referred By: Confirmed By:Oswaldo Vu
--- NOTE | 2024-01-27 16:59 | CT Scan Report ---
CHEST CT WITH CONTRAST; CT ABDOMEN AND PELVIS WITH IV CONTRAST ONLY CT DOSE: 917.74 mGy.cm HISTORY: Acute fever with weight loss. fever, weight loss, fatigue TECHNIQUE: Multiaxial CT images of the chest, abdomen and pelvis were performed following the IV admi nistration of 94 cc of Optiray. A dose lowering technique was utilized adhering to the principles o f ALARA. COMPARISON: CTA chest 06/21/2016. FINDINGS: CT CHEST: Unremarkable thyroid. No pathologically enlarged lymph nodes. Heart is normal in size. No thoracic ao rtic aneurysm. Unremarkable pulmonary artery. Pulmonary emphysema with bronchial wall thickening, sug gestive of bronchitis. Mild subsegmental bibasilar atelectasis versus scarring. No suspicious pulmona ry nodules or masses. Left lower lobe calcified granulomata. Central airways are patent. Unremarkable soft tissues. No acute fracture is identified. CT ABDOMEN/PELVIS: No free air. Study is motion degraded. The spleen is enlarged measuring up to 14.7 cm. Unremarkable p ancreas, gallbladder and adrenal glands. Possible layering gallbladder sludge. Unremarkable liver. Pa tency of the hepatic and portal veins. A 1.5 cm left hepatic lobe cyst. Unremarkable kidneys. No hydr onephrosis. Partial distention of the urinary bladder with wall thickening and perivesicular strandin g. Mild prostatomegaly. Atherosclerosis of the aorta without aneurysm. No lymphadenopathy. No bowel obstruction or bowel wall thickening is identified, however, there is limited evaluation wit hout the use of enteric contrast. Unremarkable soft tissues. No acute fracture. Chronic L5 pars defec ts with grade 1 anterolisthesis and severe L5-S1 intervertebral disc space narrowing. There is at [address] st moderate narrowing of the SI joints. IMPRESSION: 1. No acute intrathoracic, intra-abdominal or intrapelvic abnormality identified. 2. Splenomegaly. 3. No bowel obstruction or bowel wall thickening. 4. Nonspecific urinary bladder wall thickening. Correlate with urinalysis to exclude cystitis. 5. Additional findings as above. ACT 112: Negative or not required by law. Dictated: 01/27/2024 4:13 PM Transcribed: 01/27/2024 4:57 PM Scottie [id number] [email or web address] Electronically signed by: Armando Kelly M.D. 01/27/2024 4:58 PM
[2024-01-27] MEDS ORDERED: ONDANSETRON INJ 2 MG/ML 2 ML VIAL IV PRN (17:43)
[2024-01-27] MEDS ORDERED: ACETAMINOPHEN 325 MG TAB PO PRN (17:43)
[2024-01-27] MEDS ORDERED: POLYETHYLENE (MIRALAX) 17 GM PACK PO PRN (17:43)
[2024-01-27] MEDS: SODIUM CHLORIDE 0.9% 1,000 ML IV SCH (17:46)
[2024-01-27] MEDS: VANCOMYCIN HCL 1,500 MG in SODIUM CHLORIDE 0.9% 500 ML IV STA (18:36)
[2024-01-27] MEDS: ACETAMINOPHEN 500 MG TAB PO SCH (18:43)
[2024-01-27] MEDS: PIPERACILLIN/TAZOBACTAM 4.5 GM in DEXTROSE 5% MINI-B 100 ML IV SCH (20:52)
[2024-01-27 21:13] LABS: Hematocrit (blood only) 16.3 % (42.0-52.0); Hemoglobin 5.2 g/dl (14.0-18.0); Mean Corpuscular Hemoglobin 31.9 pg (25.0-34.0); Mean Corpuscular Hgb Conc 31.9 g/dL (32.0-36.0); Nucleated RBC # (auto) 0.02 K/uL (0.00-0.12); Nucleated RBC % (auto) 0.4 %; Platelet Count 174 K/uL (130-400); RDW Standard Deviation 62.9 fL (36.4-46.3); Red Blood Count 1.63 M/uL (4.70-6.10); White Blood Count 5.21 K/ul (4.8-10.8)
[2024-01-27 21:25] LABS: Blood Urine Negative (Negative)
[2024-01-27] MEDS ORDERED: ACETAMINOPHEN 325 MG TAB PO STA (21:48)
[2024-01-27 21:50] LABS: ALC (manual) 1.35 K/uL (1.2-3.4); ANC (manual) 3.33 K/uL (1.4-6.5); Eosinophils # (manual) 0.16 K/uL (0-0.50); Eosinophils % (manual) 3 %; Lymphocytes # (manual) 1.35 K/uL (1.2-3.4); Lymphocytes % (manual) 26 %; Monocytes # (manual) 0.36 K/uL (0.11-0.59); Monocytes % (manual) 7 %; Neutrophils # (manual) 3.33 K/uL (1.40-6.50); Neutrophils % (manual) 64 %; Polychromasia 1+
[2024-01-27] MEDS: diphenhydrAMINE Capsule 25 MG CAP PO ONE (22:38)
[2024-01-27] MEDS: FOLIC ACID 1 MG in SYRINGE 9.8 ML IV STA (22:58)
[2024-01-27] MEDS: diphenhydrAMINE 50 MG/ML VIAL IV STA (22:58)
[2024-01-28 02:57] LABS: Albumin Globulin Ratio 1.1 (0.9-2); Albumin Level 2.7 gm/dl (3.4-5.0); Bilirubin,Total 2.1 mg/dl (0.2-1.0); Calcium 7.3 mg/dl (8.6-10.3); Creatinine Clr Calc Pharmacy 70.8 ml/min; Est GFR (African American) 97.7 ml/min; Est GFR (Non-African American) 84.3 ml/min; Globulin 2.5 gm/dl (2.5-4.0); Potassium 4.2 mmol/L (3.5-5.1); Total Protein 5.2 gm/dl (6.0-8.3)
[2024-01-28] MEDS: VANCOMYCIN HCL 750 MG in SODIUM CHLORIDE 0.9% 250 ML IV SCH (02:58)
[2024-01-28] MEDS: NICOTINE 14 MG/24 HR PATCH TD SCH (02:58)
[2024-01-28 03:32] LABS: Hematocrit (blood only) 19.5 % (42.0-52.0); Hemoglobin 6.3 g/dl (14.0-18.0); Mean Corpuscular Hemoglobin 31.5 pg (25.0-34.0); Mean Corpuscular Hgb Conc 32.3 g/dL (32.0-36.0); Mean Corpuscular Volume 97.5 fL (80.0-100.0); Mean Platelet Volume 10.6 fL (9.4-12.4); Platelet Count 186 K/uL (130-400); RDW Coefficient of Variation 17.4 % (11.5-14.5); RDW Standard Deviation 56.9 fL (36.4-46.3); White Blood Count 6.13 K/ul (4.8-10.8)
[2024-01-28] MEDS ORDERED: SODIUM CHLORIDE 0.9% 250 ML IV PRN (04:47)
[2024-01-28] MEDS: diphenhydrAMINE 50 MG/ML VIAL IV STA (05:21)
[2024-01-28 06:51] LABS: Estimated Average Glucose 117 mg/dl; Hemoglobin A1C 5.7 % (4.5-5.6)
[2024-01-28] MEDS: FOLIC ACID 1 MG in SYRINGE 9.8 ML IV SCH (09:06)
[2024-01-28 10:35] LABS: Hematocrit (blood only) 23.3 % (42.0-52.0); Hemoglobin 7.7 g/dl (14.0-18.0); Mean Corpuscular Hemoglobin 30.9 pg (25.0-34.0); Mean Corpuscular Volume 93.6 fL (80.0-100.0); Mean Platelet Volume 10.8 fL (9.4-12.4); Platelet Count 181 K/uL (130-400); RDW Coefficient of Variation 19.9 % (11.5-14.5); RDW Standard Deviation 63.4 fL (36.4-46.3); Red Blood Count 2.49 M/uL (4.70-6.10); White Blood Count 6.75 K/ul (4.8-10.8)
--- NOTE | 2024-01-28 10:44 | Hospitalist Progress Note ---
Date of Service January 28, 2024 Assessment & Plan (1) Anemia: (2) Sepsis: (3) Fatigue: (4) Unintentional weight loss: (5) Night sweats: (6) Tobacco use disorder: Plan 63-year-old male with history of tobacco use, diet-controlled type 2 diabetes history of brain aneurysm s/p clipping in 2004 and other medical problems listed below who presents with night sweats and progressive fatigue over the past month and was found to have anemia requiring transfusion. Macrocytic anemia Hgb 6.1, hct 18.8, MCV 101.1, Tbili 2.3 Reviewed folate, B12, TSH and they are normal, peripheral smear Elevated LDH, retic count. Haptoglobin pending CT abd/P did not show any acute abnormality but noted 1.5cm left hepatic lobe cyst and Splenomegaly With Splenomegaly and available labs, concern for possible Hemolysis Consider Hematology evaluation if negative infectious workup First PRBC on admission was not completed due to fever during episode and possible transfusion reaction per RN Got 2 more PRBC overnight Post transfusion Hb is 7.7 Night sweats Unintentional weight loss Presenting with night sweats over past 3 weeks, 30 lb weight loss over last 4 months, 30 pack year smoking hx CXR without acute process CT chest unremarkable CT abd/P as above Counseled regarding smoking. He stated he finally quit 1 week ago Needs to follow up with PCP for routine age appropriate cancer screening including colonoscopy Sepsis Initially afebrile in ED but repeat vitals showing T 38 C, HR 103, lactate 2.5 meeting sepsis criteria No leukocytosis, procal WNL Per RN today, he had fever before the initial transfusion was started Continue empiric vanc, zosyn Lactate normalized with IVF Considering tooth/gum pain, Facial CT obtained today Facial CT showed severe periodontal disease, 15mm periodontal abscess over left anterior maxilla with surrounding cellulitis Follow up blood cultures in lab History of tobacco use 30 pack years, quit 1 week ago. Declines nicotine patch DVT Ppx: SCDs only for now given anemia of unknown source Code status: FULL PCP: No PCP - lives in [place]. Needs one on C I spent a total of 50 minutes coordinating, documenting, and providing care for this patient excluding time spent in the performance of separately billed services. Admission and Anticipated Discharge Date Admission Date: January 27, 2024 Subjective Patient seen and examined. at bedside. Patient reported he has been having fatigue for the past month. Had some URI within the past month with cough at the time that resolved. Reports he has been feeling weak, mildly for the past month. Reported occasional low grade fever, poor appetite Reports dental pain and gum pain that started 2 days ago. Denied hematuria dyschezia, melena, hematuria, hemoptysis or hematemesis. Denies dysuria, frequency, urgency Currently denies cough, chest pain or shortness of breath at rest. Reports some shortness of breath with activity Has not seen a doctor in so many years. Reports he smoked 1 pack/day for 35 years and quit a week ago. Drinks alcohol occasionally. Denies illicit drug use Takes an over the counter Tylenol-ibuprofen occasionally Physical Exam Constitutional: + well hydrated; no acute distress Eyes: PERRL, conjunctivae normal, anicteric sclerae ENMT: Poor dental hygiene. Multiple missing teeth, caries Tenderness over left maxillary area and gum Respiratory: normal respiratory effort, lungs clear to auscultation Cardiovascular: Rate/Rhythm: regular rate and regular rhythm Gastrointestinal (Abdomen): normal bowel sounds, soft, nontender, no hepatosplenomegaly Musculoskeletal: no cyanosis or clubbing, extremities motor strength 5/5 No pedal edema Neurologic: PERRL, EOMI, accommodation nl, no face palsy, no dysarthria Psychiatric: A+Ox3, euthymic affect Results & Data Results & Data Vital Signs (Past 12 Hours) Vital Signs Temp Pulse Pulse Resp BP BP Pulse Ox 01/28/24 10:37 37.6 C H 81 20 165/78 H 91 01/28/24 07:28 36.6 C 81 18 156/79 H 91 01/28/24 06:35 37.3 C 89 15 129/79 90 01/28/24 06:05 37.1 C 80 17 143/76 H 89 L 01/28/24 05:50 37.2 C 89 16 139/74 92 01/28/24 05:33 36.8 C 89 16 144/77 H 91 01/28/24 03:24 37.7 C H 85 17 139/71 90 01/28/24 01:58 37.7 C H 89 15 144/79 H 90 01/28/24 00:58 37.7 C H 86 17 124/75 90 01/28/24 00:48 37.3 C 89 16 133/71 91 01/28/24 00:28 37.6 C H 86 17 133/70 90 01/28/24 00:13 37 C 86 17 123/69 92 01/28/24 00:11 37 C 86 15 123/69 94 01/27/24 23:56 37.0 C 85 16 125/68 96 01/27/24 23:45 37.0 C 81 17 111/64 91 O2 Del Method 01/28/24 10:37 Room Air 01/28/24 07:28 01/28/24 06:35 01/28/24 06:05 01/28/24 05:50 01/28/24 05:33 01/28/24 03:24 01/28/24 01:58 01/28/24 00:58 01/28/24 00:48 01/28/24 00:28 01/28/24 00:13 01/28/24 00:11 01/27/24 23:56 01/27/24 23:45 Room Air Laboratory Results Abnormal lab results 01/27/24 01/27/24 01/27/24 Range/Units 11:20 12:09 20:31 RBC 1.86 L 1.63 L (4.70-6.10) M/uL Hgb 6.1 L* 5.2 L* (14.0-18.0) g/dl Hct 18.8 L* 16.3 L* (42.0-52.0) % MCV 101.1 H (80.0-100.0) fL MCHC 31.9 L (32.0-36.0) g/dL RDW Std Deviation 58.4 H 62.9 H (36.4-46.3) fL RDW Coeff of Juan 16.5 H 18.0 H (11.5-14.5) % Reticulocyte % (Auto) 8.76 H (0.50-2.00) % [place] # (Auto) 1.11 H (0.11-0.59) K/uL Reticulocyte # 0.160 H (0.020-0.100) 10^6/uL Chloride (98-107) mmol/L Hemoglobin A1c (4.5-5.6) % Calcium (8.6-10.3) mg/dl TIBC (250-450) mcg/dl Unsaturated IBC (155-355) mcg/dl Transferrin % Sat (20-50) % Ferritin 1364.0 H (8-388) ng/ml Total Bilirubin (0.2-1.0) mg/dl Lactate Dehydrogenase 795 H (86-244) U/L Total Protein (6.0-8.3) gm/dl Albumin (3.4-5.0) gm/dl Crossmatch See Detail 01/28/24 01/28/24 Range/Units 02:17 10:08 RBC 2.00 L 2.49 L (4.70-6.10) M/uL Hgb 6.3 L* 7.7 L (14.0-18.0) g/dl Hct 19.5 L* 23.3 L (42.0-52.0) % MCV (80.0-100.0) fL MCHC (32.0-36.0) g/dL RDW Std Deviation 56.9 H 63.4 H (36.4-46.3) fL RDW Coeff of Juan 17.4 H 19.9 H (11.5-14.5) % Reticulocyte % (Auto) (0.50-2.00) % [place] # (Auto) (0.11-0.59) K/uL Reticulocyte # (0.020-0.100) 10^6/uL Chloride 110 H (98-107) mmol/L Hemoglobin A1c 5.7 H (4.5-5.6) % Calcium 7.3 L (8.6-10.3) mg/dl TIBC 242 L (250-450) mcg/dl Unsaturated IBC 87 L (155-355) mcg/dl Transferrin % Sat 64 H (20-50) % Ferritin (8-388) ng/ml Total Bilirubin 2.1 H (0.2-1.0) mg/dl Lactate Dehydrogenase (86-244) U/L Total Protein 5.2 L (6.0-8.3) gm/dl Albumin 2.7 L (3.4-5.0) gm/dl Crossmatch
--- NOTE | 2024-01-28 12:26 | Pharmacy Report ---
Pharmacy PK ABX Note - Date of Service January 28, 2024 - Assessment and Plan Assessment 63 year old M receiving empiric vancomycin and Zosyn for treatment of sepsis secondary to unknown source. Patient presented to ED on 01/26 w/ night sweats and progressive fatigue over past 3 weeks. Also, endorses 30 pound unintentional weight loss. Hgb of 6.1 g /dL on admission. Pertinent microbiologic data includes: negative MRSA nasal swab, negative UA, blood cultures x 2 show no growth at 24 hours. No obvious source of infection on chest/abdominal CT scans. Facial CT to assess for possible odontogenic infection/dental abscess. Tmax on 01/26 of 39.5 C. Plan Vancomycin * Loading dose: 1500 mg IV x 1 * Maintenance dose: 750 mg IV every 8 hours * Regimen is predicted to achieve target AUC/ABHISHEK ~600 mg/L.hr * Reasonable in short-term, but will likely need to be reduced if ongoing * Trough level ordered for: 01/29/24 Pharmacy will continue to follow and will adjust dose/frequency as necessary. Thank you. Pharmacy has transitioned to AUC monitoring for vancomycin. AUC/ABHISHEK is the preferred PK/PD target and is associated with decreased risk of nephrotoxicity compared to traditional trough targets.
[2024-01-28] MEDS: OPTIRAY 320 100ml IV ONE (12:30)
[2024-01-28] MEDS: traMADol HCL 50 MG TABLET PO PRN (12:59)
--- NOTE | 2024-01-28 13:26 | CT Scan Report ---
CT SCAN OF THE FACIAL BONES WITH IV CONTRAST CLINICAL HISTORY: Fever. Dental pain. COMPARISON STUDY: No priors. TECHNIQUE: High-resolution CT scan of the facial bones is performed following the IV administration of 94 cc of Optiray 320. Images are reviewed in the axial, sagittal, and coronal planes. IV contrast was administered without complication. A dose lowering technique was utilized adhering to the princi ples of ALARA. FINDINGS: The skeletal structures are well mineralized. There is no evidence of facial bone fracture. The bony orbits are intact and the orbital contents are within normal limits. The zygomatic arches, nasal bones, and pterygoid plates are preserved. The maxilla and mandible are intact. There are no la yering blood products within the paranasal sinuses. The paranasal sinuses are clear. There is a right mastoid effusion. The left mastoid air cells are well pneumatized. The visualized calvarium and uppe r cervical spine are maintained. Aneurysm coils are noted in the suprasellar region. Partially imaged brain parenchyma is within normal limits. There are numerous dental caries. There is a periapical niru cency involving the left lateral incisor of the maxilla with overlying cortical breakthrough. There i s significant overlying soft tissue edema, with a 15 mm periodontal abscess seen on axial image #108 and coronal image #12. There is also a large periapical lucency around the remaining left maxillary p remolar as well as both maxillary canines. The carotid arteries and jugular veins are patent bilatera lly. IMPRESSION: 1. Severe periodontal disease as above with numerous dental caries and periapical lucencies. 2. There is an approximately 15 mm periodontal abscess overlying the left anterior maxilla with surro unding cellulitis. Follow up with dentistry is advised. 3. Right mastoid effusion. 4. Additional findings as above. ACT 112: Negative or not required by law. Electronically signed by: Jakub Talbot M.D. 01/28/2024 1:24 PM
[2024-01-28] MEDS: CEROVITE ADV FORMULA TAB PO SCH (18:41)
[2024-01-29 06:25] LABS: Hematocrit (blood only) 23.4 % (42.0-52.0); Hemoglobin 7.7 g/dl (14.0-18.0); Mean Corpuscular Hemoglobin 31.6 pg (25.0-34.0); Mean Corpuscular Hgb Conc 32.9 g/dL (32.0-36.0); Mean Corpuscular Volume 95.9 fL (80.0-100.0); Mean Platelet Volume 10.5 fL (9.4-12.4); Platelet Count 178 K/uL (130-400); RDW Coefficient of Variation 20.4 % (11.5-14.5); RDW Standard Deviation 65.7 fL (36.4-46.3); Red Blood Count 2.44 M/uL (4.70-6.10); White Blood Count 5.79 K/ul (4.8-10.8)
[2024-01-29 06:35] LABS: Albumin Globulin Ratio 1.1 (0.9-2); Albumin Level 2.8 gm/dl (3.4-5.0); BUN Creatinine Ratio 16.7 (10-20); Calcium 7.7 mg/dl (8.6-10.3); Est GFR (African American) 110.6 ml/min; Est GFR (Non-African American) 95.4 ml/min; Globulin 2.6 gm/dl (2.5-4.0); Potassium 4.6 mmol/L (3.5-5.1); Total Protein 5.4 gm/dl (6.0-8.3)
--- NOTE | 2024-01-29 08:46 | Oral/Maxillofacial Consult ---
Date of Consultation January 29, 2024 Assessment & Plan (1) Chronic dental infection: (2) Erosion, teeth: (3) Periapical abscess with facial involvement: History of Present Illness Attending Physician: Tracy Phillips MD History of Present Illness Oral Maxillofacial Surgery Exam Present Complaint: I have pain/swelling/drainage from my infected upper teeth. Symptoms have been ongoing for a while. all the upper teeth are fractured to the gum line and associated with periapical infection The IV antibiotics has helped to control the active infection but unless the upper teeth are removed the infection will reoccur. Oral Exam: Finding--Fractured/decayed teeth, tender gingival tissue with deep pocket formation. All upper teeth are fractured and infected removal is clinical indicated. The lower teeth are also fractured but he has no issues. There is extensive irregularity of the lower jaw bone and will require signific ant revision to allow future dentures. At this time I will address the acute issues associated with the upper teeth only. Imaging: CT scan The TMJ are well positioned and no evidence of bony pathology. The sinus, supporting bone all WNL Evaluated the nerve/sinus relationship to the roots of the teeth. Periapical infection and abscess noted large misbah and bony irregularities noted lower jaw Soft tissue: The floor of the mouth, tongue, hard/soft palate, posterior pharyngeal area all with in normal limits, no pathology or abnormal findings noted. No lesions noted that require follow up or Bx. Oral Care: Overall oral care is very poor Occlusion: Looks to have Class I ridge form TMJ exam: No pop, clicking, pain, good ROM, No history of TMJ injury or dysfunction Periodontal exam: The gingival tissue shows evidence of periodontal pathology. Head/Neck exam: Neck is supple, FROM, Able to extend and flex neck w/o difficulty, no masses, no abnormalities, no airway issues. Treatment Plan: If medically cleared would like to remove the 8 fractured upper roots and I&D of all associated periapical lesions to prevent a recurrence of the present infection (upper lip) Set up with general anesthesia in hospital due to complexity of the procedure and current medical issues I reviewed the treatment plan and consent with the patient. Understanding was expressed. Time was given for questions regarding the surgery, risks and post op care. Discussed alternative to treatment--procedure as planned, Do not do surgery The following teeth are decayed and fractured and removal is indicated ELBERT:6,7,8,9,10,11,12,13 He understands that the lower teeth will be removed in the future and we will plan smoothing the irregular lower jaw for future dentures. Risks discussed: Bleeding,Pain,swelling,infection, dry socket, delayed healing, nerve injury to face,lips,tongue,chin area which could be permanent (rare). TMJ, jaw stiffness, change in bite (rare), ear pain (referred). Sinus problems like fistula or infection. Need for future surgery lower jaw Need to leave a small root fragment in place to avoid injury to nerve or sinus. Relationship of teeth to nerve/sinus and risk of jaw fracture. Home care reviewed: tooth brushing, rinsing, follow up care with Dr Hancock. diet=[id number] dental. Discussed activity level, driving/work while on Rx pain Meds. Surgery to be set up once insurance is verified or coverage Allergies Allergy/AdvReac Type Severity Reaction Status Date / Time No Known Allergies Allergy NONE Verified 06/21/16 14:50 Home Medications Medication Instructions Recorded Confirmed Type albuterol sulfate 90 mcg/actuation 2 puffs inhalation QID PRN 01/14/24 01/27/24 Rx aerosol inhaler (Ventolin HFA) shortness of breath or wheezing #8.5 grams Advil 1 tab PO UD PRN Pain 01/27/24 01/27/24 History Tylenol 1 tab PO UD PRN Pain 01/27/24 01/27/24 History Patient History Medical History (Updated 01/29/24 @ 09:37 by Jaime Hancock, DMD) Tobacco use disorder 30 pack years, quit last week Pneumothorax Brain aneurysm Diabetes mellitus, type II diet controlled Surgical History (Updated 01/27/24 @ 14:36 by Sarah Moon PA-C) H/O vasectomy H/O brain surgery h/o clipping of 2 aneurysms in 2004 at OSH in [place] Social History (Updated 01/14/24 @ 10:10 by Chon Solo) Smoking Status: Former smoker Tobacco Type: Cigarettes Cigarettes Per Day: 1 pk/day; Smoking End Date: 01/20/2024; Second Hand Exposure: No; Do You Dip or Chew Tobacco: No; Tobacco Cessation Education Requested by Patient: No Hx Alcohol Use: No Hx Substance Use: No Preferred Language: Kyrgyz Communication Ability: Effective Hotbed Operator Required: No Beliefs That Will Affect Care: None marital status: Current Living Situation: Spouse Other Information That Helps Us Care for You: No Feels Safe at Home: Yes Safety Concerns: Feels Safe At This Time Assistive Devices: None Results & Data Vital Signs (Past 12 Hours) Vital Signs Temp Pulse Pulse Resp BP Pulse Ox O2 Del Method 01/29/24 07:45 36.6 C 81 18 132/75 90 Room Air 01/29/24 07:34 76 01/29/24 03:04 36.9 C 76 18 138/78 91 Room Air 01/28/24 23:54 86 01/28/24 22:34 37.0 C 83 18 132/81 90 Room Air PG Care Time/CCT Total # of Minutes Spent Total Time Spent with Patient: Total time spent is greater than 50% in coordination of care (as documented) at patient's floor/unit and/or counseling patient: Coding Level of Care Code 09460 IN/OBS CONSULT LVL 2,35M Diagnoses Chronic dental infection K04.7 Erosion, teeth K03.2 Periapical abscess with facial involvement K04.7 CPT Codes DRAINAGE OF MOUTH LESION - 43316 ([id number]) REM IMP TOOTH W MUCOPER FLP - D7210 ([id number])
[2024-01-29] MEDS: VANCOMYCIN LEVEL ONE (13:24)
--- NOTE | 2024-01-29 14:09 | Pharmacy Report ---
Pharmacy PK ABX Note - Date of Service January 29, 2024 - Assessment and Plan Assessment 01/28: * Random vancomycin level this AM came back at ~7.4 mcg/ml- current dosing is below goal AUC/ABHISHEK therefore will increase dosing to 1000 mg iv q 8 hours. 01/27: * 63 year old M receiving empiric vancomycin and Zosyn for treatment of sepsis secondary to unknown source. Patient presented to ED on 01/26 w/ night sweats and progressive fatigue over past 3 weeks. Also, endorses 30 pound unintentional weight loss. Hgb of 6.1 g /dL on admission. * Pertinent microbiologic data includes: negative MRSA nasal swab, negative UA, blood cultures x 2 show no growth at 24 hours. No obvious source of infection on chest/abdominal CT scans. Facial CT to assess for possible odontogenic infection/dental abscess. Tmax on 01/26 of 39.5 C. Plan Vancomycin * Increased to 1000 mg iv q 8 hours Pharmacy will continue to follow and will adjust dose/frequency as necessary. Thank you. Pharmacy has transitioned to AUC monitoring for vancomycin. AUC/ABHISHEK is the preferred PK/PD target and is associated with decreased risk of nephrotoxicity compared to traditional trough targets.
--- NOTE | 2024-01-29 15:43 | Hospitalist Progress Note ---
Date of Service January 29, 2024 Assessment & Plan (1) Anemia: (2) Sepsis: (3) Fatigue: (4) Unintentional weight loss: (5) Night sweats: (6) Tobacco use disorder: Plan 63-year-old male with history of tobacco use, diet-controlled type 2 diabetes, brain aneurysm s/p clipping in 2004 and other medical problems listed below who presents with night sweats and progressive fatigue over the past month and was found to have anemia requiring transfusion. He is being managed for the following: Chronic dental infection Periapical abscess with facial involvement Severe Sepsis POA: secondary to above. Tachycardia/elevated lactate/elevated temperature noted at presentation. Increased blood lactic acid level Patient coming in with generalized symptoms and not feeling well, reported left upper facial pain Face CT: Severe periodontal disease with numerous dental caries and periapical lucencies. Approximately 15 mm periodontal abscess overlying the left anterior maxilla with surrounding cellulitis. Lactate level resolved, patient reports improving facial pain, reports feeling better. Continue with Zosyn 01/26 and vancomycin 01/26. 01/26 MRSA screen negative ->> DC vancomycin. f/u 01/26 blood culture OMFS on board, Plan for removing 8 fractured upper roots and InD of all associated periapical lesions. EKG, Trop fairly wnl. ECHO w/ EF of 65-70%, LV wall motion wnl. Macrocytic anemia: Admitting hemoglobin of 6.1, MCV 101, T. bili 2.3. Elevated reticulocyte count and elevated LDH at 795. peripheral blood smear without acute finding. Haptoglobin <10 Folate 10, vitamin B12 596, iron 155, transferrin saturation high. Pending labs: G6PD Status post 2+ unit PRBC transfusion, hemoglobin is stable around 7.7 CT abd/P did not show any acute abnormality but noted 1.5cm left hepatic lobe cyst and Splenomegaly ?Hemolytic anemia, will consult hematology Monitor HnH. Night sweats Unintentional weight loss Presenting with night sweats over past 3 weeks, 30 lb weight loss over last 4 months per pt, 30 pack year smoking hx CXR without acute process CT chest unremarkable CT abd/P as above Counseled regarding smoking. 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 Declines nicotine patch DVT Ppx: SCDs only for now given anemia of unknown source Code status: FULL PCP: No PCP - lives in [place], [place]. Needs one on DC Admission and Anticipated Discharge Date Admission Date: January 27, 2024 Subjective Patient was seen and examined at bedside. Patient was lying in bed, on room air, NAD, resting comfortably. Patient denies any new acute events, reports dental pain improving, reports feeling better. Patient reports eating okay and moving bowels okay. Patient denies headache/dizziness/chest pain/palpitation. Patient denies fatigue. Of note, Has not seen a doctor in so many years. 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 Denies illicit drug use Takes an over the counter Tylenol-ibuprofen occasionally Physical Exam Physical Exam: GENERAL: Alert and oriented x3. NAD, on RA. Ill appearing, older appearing than stated age. HEENT: No pallor, no icterus. Pupils equal, round and reactive to light. Oral mucosa moist. Poor dental hygiene, tenderness over left maxillary area/gum improving. all upper teeth are fractured and infected. NECK: No JVD, no neck masses. HEART: S1 and S2 heard. Regular rate and rhythm. No murmur, no gallop. RESPIRATORY SYSTEM: Normal AP diameter. No accessory muscle use. No wheezing, no crackles. ABDOMEN: Soft, bowel sounds present, nontender, no distention. CENTRAL NERVOUS SYSTEM: No facial droop. Speech is clear. Obeys simple commands. Moves extremities. EXTREMITIES: No edema, no erythema seen. Results & Data Results & Data Vital Signs (Past 12 Hours) Vital Signs Temp Pulse Pulse Resp BP Pulse Ox O2 Del Method 01/29/24 15:14 37.0 C 84 18 137/71 91 Room Air 01/29/24 15:01 85 01/29/24 11:09 36.9 C 91 H 18 131/77 90 Room Air 01/29/24 07:45 36.6 C 81 18 132/75 90 Room Air 01/29/24 07:34 76
[2024-01-29 15:45] LABS: Hematocrit (blood only) 22.4 % (42.0-52.0); Hemoglobin 7.3 g/dl (14.0-18.0)
[2024-01-29] MEDS: ERGOCALCIFEROL 1250 MCG (50,000 UNITS) CAP PO SCH (17:42)
[2024-01-29] MEDS ORDERED: VANCOMYCIN HCL 1,000 MG in SODIUM CHLORIDE 0.9% 250 ML IV SCH (20:00)
[2024-01-30 06:56] LABS: Hematocrit (blood only) 23.4 % (42.0-52.0); Hemoglobin 7.7 g/dl (14.0-18.0); Mean Corpuscular Hemoglobin 32.1 pg (25.0-34.0); Mean Corpuscular Hgb Conc 32.9 g/dL (32.0-36.0); Mean Corpuscular Volume 97.5 fL (80.0-100.0); Mean Platelet Volume 10.6 fL (9.4-12.4); Platelet Count 169 K/uL (130-400); RDW Coefficient of Variation 19.9 % (11.5-14.5); RDW Standard Deviation 67.2 fL (36.4-46.3); White Blood Count 5.05 K/ul (4.8-10.8)
[2024-01-30 07:31] LABS: Albumin Level 2.8 gm/dl (3.4-5.0); BUN Creatinine Ratio 17.6 (10-20); Bilirubin,Total 1.8 mg/dl (0.2-1.0); Calcium 7.9 mg/dl (8.6-10.3); Creatinine Clr Calc Pharmacy 97.5 ml/min; Est GFR (Non-African American) 100.9 ml/min; Globulin 2.7 gm/dl (2.5-4.0); Potassium 3.9 mmol/L (3.5-5.1); Total Protein 5.5 gm/dl (6.0-8.3)
--- NOTE | 2024-01-30 12:34 | Oral/Maxillofacial Progress Nt ---
Date of Service January 30, 2024 Assessment & Plan Admission and Anticipated Discharge Date Admission Date: January 27, 2024 Subjective I reviewed the oral surgery procedure with Hernesto this morning. We are planning to take him to the OR tomorrow for a procedure under genera anesthesia to Drain the chronic infection and remove the 8 fractured roots. I will keep him NPO after midnight We will sign the consent in tomorrow before the procedure. Hernesto understands he will eventually will need the lower teeth and large misbah addressed in the future if he is interested in getting denatures. PLAN For OR Saturday AM-I&D and removal the 8 facture roots upper jaw Results & Data Vital Signs (Past 12 Hours) Vital Signs Temp Pulse Pulse Resp BP BP Pulse Ox 01/30/24 10:44 36.8 C 89 16 128/77 93 01/30/24 08:00 01/30/24 07:35 36.5 C 82 16 125/78 90 01/30/24 07:06 83 01/30/24 03:11 36.9 C 84 20 150/78 H 90 O2 Del Method 01/30/24 10:44 Room Air 01/30/24 08:00 Room Air 01/30/24 07:35 Room Air 01/30/24 07:06 01/30/24 03:11 Room Air PG Care Time/CCT Total # of Minutes Spent Total Time Spent with Patient: Total time spent is greater than 50% in coordination of care (as documented) at patient's floor/unit and/or counseling patient: Coding Level of Care Code None
--- NOTE | 2024-01-30 14:14 | Hospitalist Progress Note ---
Date of Service January 30, 2024 Assessment & Plan (1) Anemia: (2) Sepsis: (3) Fatigue: (4) Unintentional weight loss: (5) Night sweats: (6) Tobacco use disorder: Plan 63-year-old male with history of tobacco use, diet-controlled type 2 diabetes, brain aneurysm s/p clipping in 2004 and other medical problems listed below who presents with night sweats and progressive fatigue over the past month and was found to have anemia requiring transfusion. He is being managed for the following: Chronic dental infection Periapical abscess with facial involvement Severe Sepsis POA: secondary to above. Tachycardia/elevated lactate/elevated temperature noted at presentation. Increased blood lactic acid level Patient coming in with generalized symptoms and not feeling well, reported left upper facial pain Face CT: Severe periodontal disease with numerous dental caries and periapical lucencies. Approximately 15 mm periodontal abscess overlying the left anterior maxilla with surrounding cellulitis. Lactate level resolved, patient reports improving facial pain, reports feeling better. Continue with Zosyn 01/26 and vancomycin 01/26. 01/26 MRSA screen negative ->> DC vancomycin. f/u 01/26 blood culture - [id number] OMFS on board, Plan for removing 8 fractured upper roots and InD of all associated periapical lesions josseline. EKG, Trop fairly wnl. ECHO w/ EF of 65-70%, LV wall motion wnl. Acceptable risk for needed dental Sx. Macrocytic anemia: Admitting hemoglobin of 6.1, MCV 101, T. bili 2.3. Elevated reticulocyte count and elevated LDH at 795. peripheral blood smear without acute finding. Haptogl obin <10 Folate 10, vitamin B12 596, iron 155, transferrin saturation high. Pending labs: G6PD Status post 2+ unit PRBC transfusion, hemoglobin is stable around 7.7 CT abd/P did not show any acute abnormality but noted 1.5cm left hepatic lobe cyst and Splenomegaly ?Hemolytic anemia, consult hematology, await recs. Monitor HnH. Night sweats Unintentional weight loss Presenting with night sweats over past 3 weeks, 30 lb weight loss over last 4 months per pt, 30 pack year smoking hx CXR without acute process CT chest unremarkable CT abd/P as above Counseled regarding smoking. 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 Needs one on DC Admission and Anticipated Discharge Date Admission Date: January 27, 2024 Subjective Patient was seen and examined at bedside. Patient was lying in bed, on room air, NAD, resting comfortably. Patient denies any new acute events, reports dental pain improving, reports feeling better. Patient reports eating okay and moving bowels okay. Patient denies headache/dizziness/chest pain/palpitation. Patient denies fatigue. Patient's at bedside, who was also updated on plan of care, answered all her questions. Of note, Has not seen a doctor in so many years. 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 Denies illicit drug use Takes an over the counter Tylenol-ibuprofen occasionally Physical Exam Physical Exam: GENERAL: Alert and oriented x3. NAD, on RA. Ill appearing, older appearing than stated age. HEENT: No pallor, no icterus. Pupils equal, round and reactive to light. Oral mucosa moist. Poor dental hygiene, tenderness over left maxillary area/gum improving. all upper teeth are fractured and infected. NECK: No JVD, no neck masses. HEART: S1 and S2 heard. Regular rate and rhythm. No murmur, no gallop. RESPIRATORY SYSTEM: Normal AP diameter. No accessory muscle use. No wheezing, no crackles. ABDOMEN: Soft, bowel sounds present, nontender, no distention. CENTRAL NERVOUS SYSTEM: No facial droop. Speech is clear. Obeys simple commands. Moves extremities. EXTREMITIES: No edema, no erythema seen. Results & Data Results & Data Vital Signs (Past 12 Hours) Vital Signs Temp Pulse Pulse Resp BP BP Pulse Ox 01/30/24 10:44 36.8 C 89 16 128/77 93 01/30/24 08:00 01/30/24 07:35 36.5 C 82 16 125/78 90 01/30/24 07:06 83 01/30/24 03:11 36.9 C 84 20 150/78 H 90 O2 Del Method 01/30/24 10:44 Room Air 01/30/24 08:00 Room Air 01/30/24 07:35 Room Air 01/30/24 07:06 01/30/24 03:11 Room Air
--- NOTE | 2024-01-30 17:49 | Oncology Consultation ---
Date of Consultation January 30, 2024 Assessment & Plan (1) Anemia: Most likely anemia of chronic disease. I have reviewed the basic hematological workup which has been performed in the hospital. At this point we will refrain from invasive testing such as bone marrow biopsy while he deals with the dental infection. Also will bring to attention that he has never had a colonoscopy so will need screening colonoscopy once he is discharged. He will need a full health maintenance workup. Again would not recommend a bone marrow biopsy given that his anemia seems to be anemia of chronic disease due to poorly controlled diabetes and dental infection. Transfuse if hemoglobin is less than 7 g/dL. (2) Unintentional weight loss: Multifactorial. CT scan did not reveal any lymphadenopathy. Plan thank you for this interesting hematological consult. A total of 60 minutes were spent in counseling, coordination of care, review of prior records. History of Present Illness Reason for Consultation: normocytic normochromic anemia Attending Physician: Tracy Phillips MD History of Present Illness the patient is a very pleasant 63-year-old man who has overall not been feeling very well, has had generalized weakness and fatigue, has not seen a physician for a very long time. He is recently been evaluated by oral facial maxillary service colleagues and found to have multiple dental infections. He had a CT scan of the abdomen pelvis on admission was found to have splenomegaly. Currently he is very tired and fatigued. Allergies Allergy/AdvReac Type Severity Reaction Status Date / Time No Known Allergies Allergy NONE Verified 06/21/16 14:50 Home Medications Medication Instructions Recorded Confirmed Type albuterol sulfate 90 mcg/actuation 2 puffs inhalation QID PRN 01/14/24 01/27/24 Rx aerosol inhaler (Ventolin HFA) shortness of breath or wheezing #8.5 grams Advil 1 tab PO UD PRN Pain 01/27/24 01/27/24 History Tylenol 1 tab PO UD PRN Pain 01/27/24 01/27/24 History Patient History Medical History (Updated 01/29/24 @ 09:37 by Jaime Hancock DMD) Tobacco use disorder 30 pack years, quit last week Pneumothorax Brain aneurysm Diabetes mellitus, type II diet controlled Surgical History (Updated 01/27/24 @ 14:36 by Sarah Moon PA-C) H/O vasectomy H/O brain surgery h/o clipping of 2 aneurysms in 2005 at OSH in [place] Social History (Updated 01/14/24 @ 10:10 by Chon Solo) Smoking Status: Former smoker Tobacco Type: Cigarettes Cigarettes Per Day: 1 pk/day; Smoking End Date: 01/20/2024; Second Hand Exposure: No; Do You Dip or Chew Tobacco: No; Tobacco Cessation Education Requested by Patient: No Hx Alcohol Use: No Hx Substance Use: No Preferred Language: Comoran Communication Ability: Effective Enologist Required: No Beliefs That Will Affect Care: None marital status: Current Living Situation: Spouse Other Information That Helps Us Care for You: No Feels Safe at Home: Yes Safety Concerns: Feels Safe At This Time Assistive Devices: None Review of Systems Review of Systems: All systems reviewed & are unremarkable except as noted in HPI & below Constitutional: as per Subjective / HPI Eyes: as per Subjective / HPI Ear, Nose, Mouth, Throat: as per Subjective / HPI Respiratory: as per Subjective / HPI Cardiovascular: as per Subjective / HPI Gastrointestinal: as per Subjective / HPI Genitourinary: + as per Subjective / HPI Musculoskeletal: as per Subjective / HPI Integumentary: as per Subjective / HPI Physical Exam Constitutional: WD/WN, vitals as above Eyes: PERRL, conjunctivae normal, anicteric sclerae ENMT: external ear and nose normal, oropharynx normal Neck: trachea midline, no thyromegaly Respiratory: normal respiratory effort, lungs clear to auscultation Cardiovascular: RRR, no murmur, no edema Gastrointestinal (Abdomen): normal bowel sounds, soft, nontender, no hepatosplenomegaly Musculoskeletal: no cyanosis or clubbing, extremities motor strength 5/5 Skin: no rashes, warm and dry Neurologic: patellar DTR's 2+ bilat, sensation intact Results & Data Vital Signs (Past 12 Hours) Vital Signs Temp Pulse Pulse Resp BP BP Pulse Ox 01/30/24 15:27 95 H 01/30/24 14:51 37.2 C 94 H 16 135/77 94 01/30/24 10:44 36.8 C 89 16 128/77 93 01/30/24 08:00 01/30/24 07:35 36.5 C 82 16 125/78 90 01/30/24 07:06 83 O2 Del Method 01/30/24 15:27 01/30/24 14:51 Room Air 01/30/24 10:44 Room Air 01/30/24 08:00 Room Air 01/30/24 07:35 Room Air 01/30/24 07:06 (1) Anemia Anemia type: unspecified type Qualified Code(s): D64.9 - Anemia, unspecified
[2024-01-31 06:58] LABS: Hematocrit (blood only) 21.3 % (42.0-52.0); Hemoglobin 7.1 g/dl (14.0-18.0); Mean Corpuscular Hgb Conc 33.3 g/dL (32.0-36.0); Mean Corpuscular Volume 99.1 fL (80.0-100.0); Mean Platelet Volume 10.8 fL (9.4-12.4); Platelet Count 153 K/uL (130-400); RDW Coefficient of Variation 20.1 % (11.5-14.5); RDW Standard Deviation 67.5 fL (36.4-46.3); Red Blood Count 2.15 M/uL (4.70-6.10); White Blood Count 4.09 K/ul (4.8-10.8)
[2024-01-31] MEDS: LACTATED RINGER'S 1,000 ML IV SCH (07:15)
[2024-01-31 07:27] LABS: BUN Creatinine Ratio 18.7 (10-20); Bilirubin,Total 1.7 mg/dl (0.2-1.0); Calcium 7.9 mg/dl (8.6-10.3); Creatinine Clr Calc Pharmacy 86.7 ml/min; Est GFR (African American) 112.4 ml/min; Est GFR (Non-African American) 96.9 ml/min; Phosphorus 4.1 mg/dl (2.5-4.9); Potassium 4.2 mmol/L (3.5-5.1)
--- NOTE | 2024-01-31 07:39 | Anesthesiology Consultation ---
Date of Service January 31, 2024 Assessment & Plan Chart Review Chart Review: Acceptable Risk for Surgery and Patient NOT seen in Pre Admission Testing Consults Requested none ASA ASA4 Proposed Anesthesia Anesthesia Type: General Risk / Benefits Reviewed With: PT / POA / Parent / Guardian, Accepts Plan and Informed Consent Obtained History Surgery Operation Date: 01/31/24 08:00 Proposed Procedures p Upper Jaw Incision and Drainage, - Jaime Hancock DMD s Teeth Extraction x8 - Jaime Hancock DMD Height/Weight Height: 5 ft 8 in Weight: 61.6 kg Allergies Allergy/AdvReac Type Severity Reaction Status Date / Time No Known Allergies Allergy NONE Verified 06/21/16 14:50 Medications Home Medications Medication Instructions Recorded Confirmed Last Taken albuterol sulfate 90 mcg/actuation 2 puffs inhalation QID PRN 01/14/24 01/27/24 Unknown aerosol inhaler (Ventolin HFA) shortness of breath or wheezing #8.5 grams Advil 1 tab PO UD PRN Pain 01/27/24 01/27/24 Unknown Tylenol 1 tab PO UD PRN Pain 01/27/24 01/27/24 Unknown Active Medications Generic Name Dose Route Start Last Admin Trade Name Freq PRN Reason Stop Dose Admin Acetaminophen 1,000 mg 01/27/24 18:30 01/31/24 02:41 Acetaminophen 500 Mg Tab PO 02/26/24 18:29 1,000 mg Q8H TEAGAN Administration Ergocalciferol 1,250 mcg 01/29/24 15:30 01/29/24 17:42 Ergocalciferol 1250 Mcg (50,000 Units) Cap PO 02/28/24 15:29 1,250 mcg Q7D TEAGAN Administration Piperacillin Sod/Tazobactam 100 mls @ 25 mls/hr 01/27/24 20:00 01/31/24 05:26 Sod 4.5 gm/ Dextrose IV 02/06/24 19:59 25 mls/hr Q8H TEAGAN Administration Protocol Folic Acid 1 mg/ Syringe 10 mls @ 5 mls/min 01/28/24 09:00 01/30/24 08:25 IV 02/27/24 08:59 5 mls/min QAM TEAGAN Administration Lactated Ringer's 1,000 mls @ 15 mls/hr 01/31/24 07:15 01/31/24 07:15 Lr IV 03/01/24 07:14 15 mls/hr .Q24H TEAGAN Administration KVO Miscellaneous 1 each 01/28/24 08:59 01/30/24 08:26 Remove Nicoderm Patch N/A 02/27/24 08:58 1 each DAILY@0859 TEAGAN Administration Multivitamins/Minerals 1 tab 01/28/24 18:00 01/30/24 08:25 Cerovite Adv Formula Tab PO 02/27/24 17:59 1 tab QAM TEAGAN Administration Nicotine 1 patch 01/28/24 02:25 01/30/24 08:26 Nicotine 14 Mg/24 Hr Patch TD 02/27/24 02:24 1 patch DAILY TEAGAN Administration Tramadol HCl 50 mg 01/28/24 10:40 01/30/24 19:49 Tramadol Hcl 50 Mg Tablet PO 02/27/24 10:39 50 mg Q6H PRN Administration Moderate to severe pain NPO Date Last Intake of Fluids: 01/30/24 Time Last Intake of Fluids: 21:00 Date Last Intake of Solids: 01/30/24 Time Last Intake of Solids: 19:00 Past Medical History Medical History Tobacco use disorder 30 pack years, quit last week Pneumothorax Brain aneurysm Diabetes mellitus, type II diet controlled COPD HLD ASCVD Ao 2004 cerebral aneurysm clipping/coiling Exercise / Class Metabolic Activity III < 4 Walking/Shop/Light housework Past Surgical History Surgical History H/O vasectomy H/O brain surgery h/o clipping of 2 aneurysms in 2004 at O[facility] in [place] Past Anesthesia History No Hx of Anesthesia Complications and No Family Hx of Anesthesia Complications History of PONV No Hx of PONV and No Hx of Motion Sickness Social History Smoking Status: Former smoker Smoking cigarettes per day: 1 pk/day Do You Dip or Chew Tobacco: No Smoking End Date: 01/20/2024 Hx Alcohol Use: No Alcohol type: beer alcohol intake frequency: a few times a week Hx Substance Use: No substance use type: does not use Physical Exam Vital Signs Last Vital Signs Temp 36.6 C 01/31/24 07:00 Pulse 80 01/31/24 07:00 Resp 20 01/31/24 07:00 BP 131/75 01/31/24 02:39 Pulse Ox 94 01/31/24 07:00 O2 Del Method Room Air 01/31/24 07:00 Constitutional + cachectic ENMT Mouth: + dentition abnormality, + dental caries, + edentulous, + poor dentition, + chipped teeth and + loose teeth Thyromental Distance: > or= 3.5 Finger Breadths Mallampati Class: II Neck normal visual inspection, trachea midline and + facial hair; neck extension not limited Respiratory normal respiratory effort Auscultation: + diminished lung sounds Cardiovascular Rate/Rhythm: regular rate and regular rhythm Heart Sounds: no murmur Vessels: no carotid bruit Musculoskeletal Spine: normal cervical ROM and no pain with cervical ROM Extremities: extremities normal to inspection; full ROM of extremities Neurologic moves all extremities Motor/Sensory: no sensory deficit Psychiatric Orientation: alert and oriented x 3 Testing Laboratory Results 01/31/24 06:07 01/31/24 06:07 Hemoglobin A1c 5.7 % (4.5-5.6) H 01/28/24 02:17 Urine Color Dark Yellow 01/27/24 14:32 Urine Appearance Clear (Clear) 01/27/24 14:32 Urine pH 6.0 (4.5-7.5) 01/27/24 14:32 Ur Specific [place] 1.018 (1.000-1.030) 01/27/24 14:32 Urine Protein Negative (Negative) 01/27/24 14:32 Urine Glucose (UA) Negative (Negative) 01/27/24 14:32 Urine Ketones Negative (Negative) 01/27/24 14:32 Urine Nitrite Negative (Negative) 01/27/24 14:32 Ur Leukocyte Esterase Negative (Negative) 01/27/24 14:32 Blood Type O Positive 01/27/24 12:09 Antibody Screen NEGATIVE 01/27/24 12:09 01/27/24 11:20 Aerobic Blood Culture - Preliminary Blood No growth in Aerobic bottle after 48 hours. Anaerobic Blood Culture - Preliminary No growth in Anaerobic bottle after 48 hours. 01/27/24 11:27 Aerobic Blood Culture - Preliminary Blood No growth in Aerobic bottle after 48 hours. Anaerobic Blood Culture - Preliminary No growth in Anaerobic bottle after 48 hours. Electrocardiogram Date: 01/27/24 Findings: + SB @ (@ 55) Chest X-Ray Date: 01/27/24 Findings: + NAD Echocardiogram Date: 01/28/24 EF: 65% LV Function: normal RWMA: + none Other Findings: + LVH (mild) Valvular Disease: + no significant valvular disease
[2024-01-31] MEDS ORDERED: ePHEDrine sulfate 50 MG/ML AMP IV PRN (07:43)
[2024-01-31] MEDS ORDERED: ATROPINE SULFATE 0.1 MG/ML 10ML SYR IV PRN (07:43)
[2024-01-31] MEDS ORDERED: FLUMAZENIL 0.1 MG/1 ML 10 ML VIAL IV PRN (07:43)
[2024-01-31] MEDS ORDERED: ONDANSETRON INJ 2 MG/ML 2 ML VIAL IV PRN (07:43)
[2024-01-31] MEDS ORDERED: PROMETHAZINE HCL 6.25 MG in SODIUM CHLORIDE 0.9% 50 ML IV PRN (07:43)
[2024-01-31] MEDS ORDERED: LABETALOL HCL IV 5 MG/ML 20ML IV PRN (07:43)
[2024-01-31] MEDS ORDERED: NALOXONE HCL 0.4 MG/1 ML VIAL/CARP IV PRN (07:43)
[2024-01-31] MEDS ORDERED: fentaNYL citrate PF 100 MCG/2 ML VIAL IV PRN (07:43)
--- NOTE | 2024-01-31 08:07 | History & Physical Bridge Note ---
Date of Service January 31, 2024 History & Physical Bridge Note I have examined the patient, reviewed the History & Physical and in the interval since the performance of the History & Physical I have noted the following changes of clinical significance: no changes noted OK for the procedure - removal of infected upper teeth
[2024-01-31] MEDS ORDERED: SODIUM CHLORIDE 0.9% 250 ML IV PRN (08:31)
[2024-01-31] MEDS ORDERED: fentaNYL citrate PF 100 MCG/2 ML VIAL ONE (08:39)
[2024-01-31] MEDS ORDERED: MIDAZOLAM HCL 1 MG/ML 2ML VIAL ONE (08:39)
[2024-01-31] MEDS: CHLORHEXIDINE GLUCONATE 0.12% 480 ML MT ONE ×2 (09:06→11:01)
[2024-01-31] MEDS ORDERED: PHENYLEPHRINE 100MCG/ML 10ML SYR IV ONE (09:21)
[2024-01-31] MEDS: BUPIVACAINE/EPINEPHRINE 0.5% 1:200,000 1.8 ML CARP ONE (09:25)
[2024-01-31] MEDS ORDERED: SUGAMMADEX SODIUM 200 MG/2 ML VIAL IV ONE (09:27)
--- NOTE | 2024-01-31 09:46 | Post Operative Brief Note ---
PG Immediate Post Op with CF Date of Surgery January 31, 2024 Pre & Post Diagnosis Operation Date: 01/31/24 08:00 Pre-Op Diagnosis: Chronic Dental Infection, Erosion of teeth, Fractured Root of Teeth x8 Upper Jaw Post-Op Diagnosis: Chronic Dental Infection, Erosion of teeth, Fractured Root of Teeth x8 Upper Jaw I identified the patient and participated in the time-out.: Yes Procedure Operation Date: 01/31/24 08:00 Actual Procedures p Upper Jaw Incision and Drainage and Debridement, Teeth Extraction x8 (#s 6,7,8,9,10,11,13,14)(Not Applicable) - Jaime Hancock, MERARI Surgeon Jaime Hancock, MERARI Metal Furrer none Estimated Blood Loss 3 Findings Consistent with Post-Op Diagnosis subperiosteal infection upper jaw associated with fractured and carious teeth 6,7,8,9,10,11,13,14 Specimens Specimen Description: none per surgeon Anesthesia Type General Complications none Disposition Accompanied Patient To Recovery: Yes
--- NOTE | 2024-01-31 10:21 | Anesthesiology Progress Note ---
Date of Service January 31, 2024 Anesthesia Post Procedure Vital Signs Vital Signs: Temp Pulse Pulse Pulse Resp BP Pulse Ox 01/31/24 10:00 84 18 114/79 95 01/31/24 09:50 85 20 131/74 95 01/31/24 09:43 36.5 C 90 15 117/70 95 01/31/24 07:00 36.6 C 80 20 94 01/31/24 02:39 36.9 C 86 18 131/75 91 01/30/24 23:29 82 01/30/24 22:50 36.5 C 77 18 123/76 93 01/30/24 20:00 01/30/24 19:52 37.0 C 92 H 18 130/74 90 01/30/24 15:27 95 H 01/30/24 14:51 37.2 C 94 H 16 135/77 94 01/30/24 10:44 36.8 C 89 16 128/77 93 O2 Del Method O2 Flow Rate 01/31/24 10:00 Nasal Cannula 2 01/31/24 09:50 Nasal Cannula 2 01/31/24 09:43 Nasal Cannula 2 01/31/24 07:00 Room Air 01/31/24 02:39 Room Air 01/30/24 23:29 01/30/24 22:50 Room Air 01/30/24 20:00 Room Air 01/30/24 19:52 Room Air 01/30/24 15:27 01/30/24 14:51 Room Air 01/30/24 10:44 Room Air Pain Intensity Generalized: Pain Intensity: 0 Head: Pain Intensity: 7 Transfer of Care Handoff Completed per policy Notes Mental Status: alert / awake / arousable Patient Amnestic to Procedure: Yes Nausea / Vomiting: adequately controlled Pain: adequately controlled Airway Patency, RR, SpO2: stable & adequate BP & HR: stable & adequate Hydration State: stable & adequate Anesthetic Complications: no major complications apparent
[2024-01-31] MEDS: ACETAMINOPHEN 325 MG TAB PO ONE (13:27)
--- NOTE | 2024-01-31 15:21 | Hospitalist Progress Note ---
Date of Service January 31, 2024 Assessment & Plan (1) Anemia: (2) Sepsis: (3) Fatigue: (4) Unintentional weight loss: (5) Night sweats: (6) Tobacco use disorder: Plan 63-year-old male with history of tobacco use, diet-controlled type 2 diabetes, brain aneurysm s/p clipping in 2004 and other medical problems listed below who presents with night sweats and progressive fatigue over the past month and was found to have anemia requiring transfusion. He is being managed for the following: Chronic dental infection Periapical abscess with facial involvement Severe Sepsis POA: secondary to above. Tachycardia/elevated lactate/elevated temperature noted at presentation. Increased blood lactic acid level - resolved. Patient coming in with generalized symptoms and not feeling well, reported left upper facial pain Face CT: Severe periodontal disease with numerous dental caries and periapical lucencies. Approximately 15 mm periodontal abscess overlying the left anterior maxilla with surrounding cellulitis. s/p Upper Jaw Incision and Drainage and Debridement, Teeth Extraction x8 (#s 6,7,8,9,10,11,13,14) on 01/31/24. MRSA screen neg. Continue with Zosyn 01/26 f/u 01/26 blood culture - [id number] OMFS on board, f/u OMFS on DC. Macrocytic anemia: Admitting hemoglobin of 6.1, MCV 101, T. bili 2.3. Elevated reticulocyte count and elevated LDH at 795. peripheral blood smear without acute finding. Haptoglobin <10 Folate 10, vitamin B12 596, iron 155, transferrin saturation high. Pending labs: G6PD Status post 2+ unit PRBC transfusion, hemoglobin 7.1 today, will transfuse one more unit. CT abd/P did not show any acute abnormality but noted 1.5cm left hepatic lobe cyst and Splenomegaly Hematology evaled, likely Anemia of chronic disease. Monitor HnH. Night sweats Unintentional weight loss Severe protein-calorie malnutrition Presenting with night sweats over past 3 weeks, 30 lb weight loss over last 4 months per pt, 30 pack year smoking hx CXR without acute process CT chest unremarkable CT abd/P as above Counseled regarding smoking cessation. 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 Scheduling Manager evaled. 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 Declines nicotine patch DVT Ppx: SCDs only for now given anemia of unknown source Code status: FULL PCP: No PCP - [facility] [place] Needs one on DC Admission and Anticipated Discharge Date Admission Date: January 27, 2024 Subjective Patient was seen and examined at bedside. Patient was lying in bed, on room air, NAD, resting comfortably. Patient denies any new acute events, s/p Opioids incision, drainage, debrideme nt and tooth extraction. Reports pain under control. Patient reports eating okay and moving bowels okay. Patient denies headache/dizziness/chest pain/palpitation. Patient denies fatigue. Patient's at bedside, who was also updated on plan of care, answered all her questions. Of note, Has not seen a doctor in so many years. 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 Denies illicit drug use Takes an over the counter Tylenol-ibuprofen occasionally Physical Exam Physical Exam: GENERAL: Alert and oriented x3. NAD, on RA. Ill appearing, older appearing than stated age. HEENT: No pallor, no icterus. Pupils equal, round and reactive to light. Oral mucosa moist. Poor dental hygiene, tenderness over left maxillary area/gum improving. all upper teeth are fractured and infected. NECK: No JVD, no neck masses. HEART: S1 and S2 heard. Regular rate and rhythm. No murmur, no gallop. RESPIRATORY SYSTEM: Normal AP diameter. No accessory muscle use. No wheezing, no crackles. ABDOMEN: Soft, bowel sounds present, nontender, no distention. CENTRAL NERVOUS SYSTEM: No facial droop. Speech is clear. Obeys simple commands. Moves extremities. EXTREMITIES: No edema, no erythema seen. Results & Data Results & Data Vital Signs (Past 12 Hours) Vital Signs Temp Pulse Pulse Pulse Resp BP BP 01/31/24 14:40 36.9 C 83 16 116/72 01/31/24 14:10 36.9 C 89 18 122/72 01/31/24 14:05 82 01/31/24 13:55 36.9 C 90 18 131/73 01/31/24 13:27 36.7 C 83 18 119/69 01/31/24 11:34 74 01/31/24 10:49 73 16 114/74 01/31/24 10:00 84 18 01/31/24 09:50 85 20 01/31/24 09:43 36.5 C 90 15 01/31/24 07:00 36.6 C 80 20 BP Pulse Ox O2 Del Method O2 Flow Rate 01/31/24 14:40 91 01/31/24 14:10 92 01/31/24 14:05 01/31/24 13:55 90 01/31/24 13:27 92 01/31/24 11:34 01/31/24 10:49 94 Room Air 01/31/24 10:00 114/79 95 Nasal Cannula 2 01/31/24 09:50 131/74 95 Nasal Cannula 2 01/31/24 09:43 117/70 95 Nasal Cannula 2 01/31/24 07:00 94 Room Air
[2024-01-31 17:42] LABS: Hematocrit (blood only) 28.7 % (42.0-52.0); Hemoglobin 9.3 g/dl (14.0-18.0)
[2024-01-31] MEDS: CHLORHEXIDINE GLUCONATE 0.12% 480 ML MT SCH (20:14)
[2024-02-01 07:19] LABS: Hematocrit (blood only) 25.6 % (42.0-52.0); Hemoglobin 8.5 g/dl (14.0-18.0); Mean Corpuscular Hgb Conc 33.2 g/dL (32.0-36.0); Mean Corpuscular Volume 96.2 fL (80.0-100.0); Mean Platelet Volume 10.4 fL (9.4-12.4); Platelet Count 174 K/uL (130-400); RDW Coefficient of Variation 20.1 % (11.5-14.5); RDW Standard Deviation 64.2 fL (36.4-46.3); Red Blood Count 2.66 M/uL (4.70-6.10); White Blood Count 7.51 K/ul (4.8-10.8)
[2024-02-01 07:42] LABS: Albumin Globulin Ratio 1.1 (0.9-2); BUN Creatinine Ratio 16.4 (10-20); Bilirubin,Total 1.9 mg/dl (0.2-1.0); Creatinine Clr Calc Pharmacy 88.3 ml/min; Est GFR (African American) 113.6 ml/min; Globulin 2.8 gm/dl (2.5-4.0); Total Protein 5.8 gm/dl (6.0-8.3)
--- NOTE | 2024-02-01 10:15 | Oral/Maxillofacial Progress Nt ---
Date of Service February 01, 2024 Assessment & Plan Admission and Anticipated Discharge Date Admission Date: January 27, 2024 Subjective POST OP NOTE at 24 hours The patient is doing very well post operatively, healing is excellent. There is minimal swelling as expected. Tissue tone =healthy normal tissue No sinus or nerve complications noted Excellent ROM Sutures in place, no bleeding. Pain well controlled. No evidence of further drainage Reviewed oral care Reviewed diet, massage, exercise and continued home/oral care RTC to see Dr Hancock February 12 at 1:30 Overall: Excellent healing from recent oral surgery Results & Data Vital Signs (Past 12 Hours) Vital Signs Temp Pulse Pulse Resp BP Pulse Ox O2 Del Method 02/01/24 07:19 36.4 C L 76 16 127/67 90 Room Air 02/01/24 02:38 36.6 C 73 18 129/71 92 Room Air 02/01/24 00:55 74 01/31/24 22:53 36.3 C L 69 18 119/70 92 Room Air PG Care Time/CCT Total # of Minutes Spent Total Time Spent with Patient: Total time spent is greater than 50% in coordination of care (as documented) at patient's floor/unit and/or counseling patient: Coding Level of Care Code None
--- NOTE | 2024-02-01 11:26 | Discharge Summary ---
Date of Service February 01, 2024 Admission HPI Per Admitting Provider This is a 63-year-old male with history of tobacco use, diet-controlled type 2 diabetes history of brain aneurysm s/p clipping in 2004 and other medical problems listed below who presents with night sweats and progressive fatigue over the past 3 weeks. Patient does not have a PCP or receive routine medical care. Was seen in the ED 2 weeks ago for cough, fever and body aches and was felt to have viral bronchitis. Discharged home with inhaler. Patient admits that over the past 6 months, he has felt progressively weaker, more fatigued and now with body aches as well as an approximate unintentional 30 pound weight loss. Endorses 30 pack years of smoking history but quit 1 week ago. Also endorses night sweats 1-2 times a week for the past 3 weeks. Decreased appetite. Denies fever since seen in the ED at the end of December. Cough has also improved. Still with intermittent chills, body aches. Only medications he is taking at home are Tylenol and Advil, which he has been taking for general body aches as well as frontal headache. Endorsing aching in knees but no swelling or redness to any joint. Denies any alcohol use. Denies any history of known anemia requiring blood transfusion. No personal history of cancer. No lightheadedness, CP, SOB, N/V, abdominal pain, dysuria, diarrhea, constipation, melena or hematochezia. Admission Exam Per Admitting Provider General Appearance: WD/WN, vitals as above, NAD, thin, ill appearing, conversing easily Head: normocephalic, atraumatic Eyes: normal inspection, PERRL, conjunctivae normal, anicteric sclerae ENT: external ear and nose normal, oropharynx normal Neck: normal visual inspection, trachea midline, no thyromegaly Respiratory: normal respiratory effort, diminished lung sounds to auscultation, no wheeze, rales or rhonchi. No accessory muscle use Cardiovascular: tachycardic rate, regular rhythm, normal peripheral pulses, no BLE edema. Vessels: no JVD Chest: normal inspection of chest Abdomen/GI: normal bowel sounds, soft, nontender, no hepatosplenomegaly Extremities/Musculoskeletal: no cyanosis or clubbing, extremities motor strength 5/5 Neurologic: PERRL, EOMI, accommodation nl, no face palsy, no dysarthria, CN's II-XI intact bilaterally and moves all extremities Psychiatric: A+Ox3, euthymic affect Skin: no rashes, normal color, warm/dry Principal Diagnosis Chronic dental infection Admitted medical abscess with facial involvement Severe sepsis POA Macrocytic anemia Severe protein calorie malnutrition Discharge Exam GENERAL: Alert and oriented x3. NAD, on RA. Ill appearing, older appearing than stated age. HEENT: No pallor, no icterus. Pupils equal, round and reactive to light. Oral mucosa moist. Poor dental hygiene, tenderness over left maxillary area/gum improving. NECK: No JVD, no neck masses. HEART: S1 and S2 heard. Regular rate and rhythm. No murmur, no gallop. RESPIRATORY SYSTEM: Normal AP diameter. No accessory muscle use. No wheezing, no crackles. ABDOMEN: Soft, bowel sounds present, nontender, no distention. CENTRAL NERVOUS SYSTEM: No facial droop. Speech is clear. Obeys simple commands. Moves extremities. EXTREMITIES: No edema, no erythema seen. Discharge Data Allergies Allergy/AdvReac Type Severity Reaction Status Date / Time No Known Allergies Allergy NONE Verified 06/21/16 14:50 Consultations 01/27/24 12:43 ED Decision to Admit Stat 01/28/24 15:57 Consult Oromaxillofacial Surgery Routine 01/29/24 15:38 Consult Hematology Routine Procedures Performed Operation Date: 01/31/24 08:00 Actual Procedures p Upper Jaw Incision and Drainage and Debridement,(Not Applicable) - Jaime Hancock DMD s Teeth Extraction x8 (#s 6,7,8,9,10,11,13,14)(Not Applicable) - Jaime Hancock DMD Ordered Studies 01/27/24 10:54 CT head/brain wo con Stat 01/27/24 14:17 CT abd pelvis IV con only Urgent CT chest diagnostic w con Urgent 01/28/24 10:40 CT facial bones w con Urgent Hospital Course (1) Anemia: (2) Sepsis: (3) Fatigue: (4) Unintentional weight loss: (5) Night sweats: (6) Tobacco use disorder: Plan 63-year-old male with history of tobacco use, diet-controlled type 2 diabetes, brain aneurysm s/p clipping in 2004 and other medical problems listed below who presents with night sweats and progressive fatigue over the past month and was found to have anemia requiring transfusion. He was managed for the following: Chronic dental infection Periapical abscess with facial involvement Severe Sepsis POA: secondary to above. Tachycardia/elevated lactate/elevated temperature noted at presentation. Increased blood lactic acid level - resolved. Patient coming in with generalized symptoms and not feeling well, reported left upper facial pain Face CT: Severe periodontal disease with numerous dental caries and periapical lucencies. Approximately 15 mm periodontal abscess overlying the left anterior maxilla with surrounding cellulitis. s/p Upper Jaw Incision and Drainage and Debridement, Teeth Extraction x8 (#s 6,7,8,9,10,11,13,14) on 01/31/24. MRSA screen neg. Continue with Zosyn 01/26, To p.o. antibiotic on discharge. Blood culture no growth so far. Patient reports feeling significantly better. Discussed with OMFS, okay to DC, patient to follow-up with OMFS as scheduled. Macrocytic anemia: Admitting hemoglobin of 6.1, MCV 101, T. bili 2.3. Elevated reticulocyte count and elevated LDH at 795. peripheral blood smear without acute finding. Haptoglobin <10 Folate 10, vitamin B12 596, iron 155, transferrin saturation high. Pending labs: G6PD Status post 3+ unit PRBC transfusion, Hemoglobin above 8. CT abd/P did not show any acute abnormality but noted 1.5cm left hepatic lobe cyst and Splenomegaly Hematology evaled, likely Anemia of chronic disease. Patient to establish with PCP to closely monitor and manage his anemia. Patient to follow-up with hematology in 1 to 2 months time upon discharge, patient to coordinate with PCP office for referral. Patient has been made aware. Vitamin D deficiency: Vitamin D level 9.4, started on high-dose vitamin D supplement once a week regimen. Patient to continue taking for about 2 months time, patient to follow-up on the vitamin D level at PCP office in about 2 months time. Patient has been made aware. Night sweats Unintentional weight loss Severe protein-calorie malnutrition Presenting with night sweats over past 3 weeks, 30 lb weight loss over last 4 months per pt, 30 pack year smoking hx CXR without acute process CT chest unremarkable CT abd/P as above Counseled regarding smoking cessation. He stated he finally quit 1 week ago [employer]. Nicotine patch on discharge. Needs to follow up with PCP for routine age appropriate cancer screening including colonoscopy Severe malnutrition iso poor dentition/infection and poor intake. Industrial Paramedic evaled. History of tobacco use: 30 pack years, quit 1 week ago [employer]. Nicotine patch on discharge. DVT Ppx: SCDs only for now given anemia of unknown source Code status: FULL PCP: No PCP [facility] [place] [facility] [place] Needs one on DC Patient is being discharged home with following instructions at the point of discharge: Establish and follow-up with your primary care physician within a week time and likely you will need labs CBC/CMP/magnesium/phosphorus. You underwent incision and drainage and tooth extraction while in hospital, you will be discharged on antibiotic to complete the course of odontogenic infection. You are also noted to have macrocytic anemia while in hospital, you will benefit from hematology evaluation as an outpatient, coordinate with your PCP office to set up the referral. Recommend you visit with hematology in about 1 to 2 months time. As discussed at the bedside, you will need to undergo age-appropriate cancer screening including colonoscopy once you establish with PCP office. Recommend you continue to quit smoking tobacco. You will be discharged on nicotine patch, follow-up with your PCP office for further prescription and management. Your vitamin D level was low, you are started on once a week vitamin D supplement. It is high-dose supplement. You will need repeat vitamin D level in about 2 months time and follow-up with your PCP office for ongoing management. Take your medications as prescribed. Please make sure that you are able to get your medications today by calling your pharmacy before you leave the hospital so that your treatment continuity is not broken. Home Health Attestation I certify that this patient is under my care and that I, or a physicians assistant sales director working with me, had a face to-face encounter that meets the home health [id number] encounter requirements with this patient. The encounter with the patient was in whole, or in part, for the following medical condition, which is the primary reason for home health care (list medical condition): I certify that, based on my findings, the following services are medically necessary home health services: My clinical findings support the need for the above services because: Further, I certify that my clinical findings support that this patient is homebound (i.e. absences from home require considerable and taxing effort and are for medical reasons or scientologist services or infrequently or of short duration when for other reasons) because: Certification for Home Health Services: Based on the above findings, I certify that this patient is confined to the home and needs intermittent fpc care, physical therapy and/or speech therapy or continues to need occupational therapy. The patient is under my care, and I have initiated the establishment of the plan of care. This patient will be followed by a physician who will periodically review the plan of care. Total Time Total Time Spent Total Time Spent (In Minutes): 45 Discharge Plan Discharge Items Patient Disposition: Home - Self-Care Reason For Visit: ANEMIA Discharge Diagnosis: Chronic dental infection Admitted medical abscess with facial involvement Severe sepsis POA Macrocytic anemia Severe protein calorie malnutrition Activity: Resume your previous activity Lifting: Gradually increase as tolerated Bathing: No limitations Exercise/Sports: Gradually increase as tolerated Driving/Machine Use: Resume 1 day after discharge Non-emergency contact: Surgeon Call non-emergency contact if: your temperature is above 101.5, your wound has increased redness, your wound has increased drainage and your wound pain has increased Follow-up/Referrals: Jaime Hancock, DMD [Physician] - PCP,NO [Primary Care Provider] - Diet: Full liquid and Clear liquid Diet Texture: Easy to Chew Peter Attending Provider Instructions: ADDITIONAL ACTIVITY RECOMMENDATIONS: * [place] teeth after every meal. It is very important to keep your mouth clean to prevent infection. * Starting tonight rinse with the Peridex as directed then 2 x a day * it is very important to keep well hydrated, this prevents fever and possible dry socket pain SPECIAL CARE INSTRUCTIONS: *It is not uncommon that between day 2-4 that your swelling will be at its worst this is very normal, do not be alarmed. * A certain amount of bleeding is to be expected. It is often possible to control mild oozing by placing folded gauze over the area and biting down for 30 minutes. If you are unable to control excessive bleeding, call Dr Hancock at [phone] * Return to the office for a follow up check up on: February 12 at 1:30 pm * office address--[address] phone # [phone] Peter Rig Mechanic Provider Instructions: Establish and follow-up with your primary care physician within a week time and likely you will need labs CBC/CMP/magnesium/phosphorus. You underwent incision and drainage and tooth extraction while in hospital, you will be discharged on antibiotic to complete the course of odontogenic infection. You are also noted to have macrocytic anemia while in hospital, you will benefit from hematology evaluation as an outpatient, coordinate with your PCP office to set up the referral. Recommend you visit with hematology in about 1 to 2 months time. As discussed at the bedside, you will need to undergo age-appropriate cancer screening including colonoscopy once you establish with PCP office. Recommend you continue to quit smoking tobacco. You will be discharged on nicotine patch, follow-up with your PCP office for further prescription and management. Your vitamin D level was low, you are started on once a week vitamin D supplement. It is high-dose supplement. You will need repeat vitamin D level in about 2 months time and follow-up with your PCP office for ongoing management. Take your medications as prescribed. Please make sure that you are able to get your medications today by calling your pharmacy before you leave the hospital so that your treatment continuity is not broken. Pending Studies at Discharge: No Stand-Alone Forms: My [facility] [employer] [facility], Smoking Cessation Medications and DC Order Prescriptions: New nicotine 7 mg/24 hr Patch 24 Hour 1 patch transdermal DAILY Qty: 28 0RF acetaminophen [Tylenol Extra Strength] 500 mg Tablet 1,000 mg PO Q8H PRN (Reason: mild to moderate pain) Qty: 60 0RF tramadol 50 mg Tablet 50 mg PO Q12H PRN (Reason: severe pain (scale score 7-10)) Qty: 10 0RF chlorhexidine gluconate 0.12 % Mouthwash 15 ml MT AMHS Qty: 600 0RF ergocalciferol (vitamin D2) 1,250 mcg (50,000 unit) Capsule 1,250 mcg PO Q7D Qty: 7 0RF Cerovite Senior 0.4 mg-300 mcg- 250 mcg Tablet 1 tab PO QAM Qty: 30 0RF amoxicillin-pot clavulanate 875-125 mg tablet 1 tab PO BID 6 Days Qty: 12 0RF Probiotic 3 billion cell capsule 3,000 mmu cells PO DAILY Qty: 14 0RF Rx Instructions: administer with a meal Continued albuterol sulfate [Ventolin HFA] 90 mcg/actuation HFA aerosol inhaler 2 puffs INH QID PRN (Reason: shortness of breath or wheezing) Qty: 8.5 0RF Advil 1 tab PO UD PRN (Reason: Pain) Rx Instructions: otc, as directed. unknown dose Tylenol 1 tab PO UD PRN (Reason: Pain) Rx Instructions: otc, as directed. unknown dose Discharge Orders: Discharge Order (Routine); Ordered 02/01/24 Ordered By: Tracy Phillips Admission Data Admit Date/Time: 01/27/24 15:54 Attending Provider: Tracy Phillips Admit Provider: Racheal Garzon Primary Care Provider: PCP,NO Other Providers: Racheal Garzon; Jaime Hancock; Bruce Bhatt
--- NOTE | 2024-02-02 12:56 | Operative Report ---
[facility] Post Operative Report Pre & Post Diagnosis Operation Date: 01/31/24 08:00 Pre-Op Diagnosis: Chronic Dental Infection, Erosion of teeth, Fractured Root of Teeth x8 Upper Jaw Post-Op Diagnosis: Chronic Dental Infection, Erosion of teeth, Fractured Root of Teeth x8 Upper Jaw I identified the patient and participated in the time-out.: Yes Procedure Operation Date: 01/31/24 08:00 Actual Procedures p Upper Jaw Incision and Drainage and Debridement,(Not Applicable) - Jaime Hancock DMD s Teeth Extraction x8 (#s 6,7,8,9,10,11,13,14)(Not Applicable) - Jaime Hancock DMD Surgeon Jaime Hancock DMD General Purchasing Agent none Estimated Blood Loss 3 Findings Consistent with Post-Op Diagnosis Specimens none Anesthesia Type General Complications none Disposition Accompanied Patient To Recovery: Yes Indications infection and carious teeth Description of Procedure Actual Procedures p Incision and Drainage maxillary anterior vestibular abscess associated with the grossly infected upper teeth Teeth Extraction x8 (#s 6,7,8,9,10,11,13,14) (Not Applicable) - Jaime Hancock DMD K12.2 K02.7 K03.0 [facility] [id number] Incision and Drainage maxillary anterior vestibular abscess D7140 x 8 Upper teeth extractions 6,7,8,9,10,11,13,14 Once cleared for surgery general anesthesia was achieved, the eyes were protected by the anesthesia dept criteria. A time out was take for patient ID, antibiotics, equipment and position verification once all agreed the procedure began. Local anesthesia using Marcaine with a vasoconstrictor ( 1.8 ml per site) given for the upper jaw. A throat pack was placed after the oral cavity was irrigated with saline. Once a surgical level of anesthesia was obtained and the local anesthesia was given time for the blocks the surgery was started. I turned my attention to the infection which was located in the upper lip and anterior maxilla The lip was elevated as the swelling was associated with the anterior upper teeth #6,7,8,9,10,11,13,14 Incision and Drainage Using a 15 blade an incision was made in the mucobuccal fold between the alveolar ridge and upper teeth, subperiosteal space and base of the nose. Once the incision was made a lot of pus extruded from the site. A curved hemostat was carefully placed into the infected space along the facial side of the upper jaw and into the subperiosteal and vestibular space. Some further drainage was now allowed to escape. I palpated the sides of the nose, palate and upper lip and no further drainage was expressed. The area was irrigated with at least 100 ml of NS solution. I now turned my attention to remove the infected grossly fractured upper teeth/roots Upper teeth extractions 6,7,8,9,10,11,13,14 (D7140 x 8) The full thick Muco-periosteal flap was made on the facial aspect from # 5-15. The flap was reflected to expose the the subperiosteal space the bone adjacent to the upper teeth and roots. The rongeur was used to remove bone, the fractured teeth/roots were removed with a 301 elevator and dental forceps. There was a large amount of granulation tissue on the ape6,7,8,9,10,11,13,14x of the upper teeth. I curetted all the residual soft tissue and irrigated the sockets. I now recontoured the bone and sutured the flap closed with a 2-0 Chromic suture. I inspected the sites to insure all bleeding was controlled. I removed the throat pack and suctioned the throat. Bilateral gauze pressure dressings were placed. All instrument and sponge count was correct. The patient was allowed to awake from the anesthesia. Once full awake the anesthesia tube was removed and the patient was taken to the recovery room with all vital sign stable. The patient tolerated the surgery very well. I will follow the patient in my office, Rx and instructions will be given upon discharge. We will need to address the lower teeth and large mandibular misbah in the future. I attest to the content of the Intraoperative Record and any orders documented therein. Any exceptions are noted below.
== END 2024-02-01 12:00 | disposition home or self-care (01) | DRG 853 ==
LOC: ED 09:18 → SUATTDRO 15:54 → 2S 15:54